=== PATIENT | female | born 1955 | race Caucasian/White ===

== ENCOUNTER 2020-03-10 10:08 | Outpatient (CLI) | payer OTHER, SELFPAY ==
--- NOTE | 2020-03-10 10:57 | ECG_ITS ---
Measurements Intervals [place] Rate: 63 P: 21 [place]: 156 QRS: 28 QRSD: 85 T: 45 QT: 400 QTc: 412 Interpretive Statements SINUS RHYTHM WITH SINUS ARRHYTHMIA BASELINE ARTIFACT- I, III, AVL, AVF NORMAL ECG Electronically Signed On 03-10-2020 11:18:44 CDT by Michael Nguyen D.O.
[2020-03-10 11:45] LABS: Basophils Absolute Auto 0.1 K/mm3 (0.0-0.1); Basophils Percent Auto 0.6 % (0.2-1.2); Eosinophils Absolute Auto 0.5 K/mm3 (0-0.3); Eosinophils Percent Auto 4.4 % (0-4.4); Hematocrit 41.9 % (37.0-47.0); Hemoglobin 13.6 g/dL (12.0-15.0); Immature Granulocyte Absolute 0.04 K/mm3 (0.00-0.031); Immature Granulocyte Percent A 0.4 % (0-0.5); Lymphocytes Absolute Auto 1.47 K/mm3 (0.9-3.2); Lymphocytes Percent Auto 14.5 % (18.3-44.2); Mean Corpuscular HGB Conc 32.5 g/dl (32-36); Mean Corpuscular Hemoglobin 28.8 pg (26-34); Mean Corpuscular Volume 88.8 fl (80-100); Mean Platelet Volume 10.7 fl (7.4-10.4); Monocytes Absolute Auto 1.6 K/mm3 (0.1-0.6); Monocytes Percent Auto 15.7 % (2.6-8.5); Neutrophils Absolute Auto 6.5 K/mm3 (1.3-6.7); Neutrophils Percent Auto 64.4 % (45.5-73.1); Platelet Count Result 326 k/mm3 (150-375); Red Blood Count 4.72 M/mm3 (4.2-5.4); Red Cell Distribution Width 12.1 % (11.5-14.5); White Blood Count 10.1 K/mm3 (4.5-10.0)
[2020-03-10 11:50] LABS: Add Urine Microscopic? YES; Appearance Urine Clear (Clear); Bilirubin Urine Negative (Negative); Blood Urine Negative (Negative); Color Urine Straw (Yellow); Glucose Urine UA Negative (Negative); Ketones Urine Negative (Negative); Leukocyte Esterase Ur Trace LEU/UL (Negative); Mucus Urine Rare /lpf; Nitrate Urine Negative (Negative); Protein Urine Negative (Negative); RBC Urine 0-2 /hpf (0-2); Specific Grav Ur 1.011 (1.001-1.035); Squamous Epithelial Cell Urine Rare /hpf (Few); Urobilinogen Urine Negative mg/dL (<2.0); WBC Urine 0-3 /hpf
[2020-03-10 11:55] LABS: Partial Thromboplastin Time 30.1 SECONDS (22.3-36.8)
[2020-03-10 11:57] LABS: Urine Cotinine NEGATIVE
[2020-03-10 12:10] LABS: Hemoglobin A1C 5.7 % (<5.7)
[2020-03-10 12:24] LABS: Albumin Level 3.9 g/dL (3.5-5.1); Anion Gap 10.5 mmol/L (7-16); Blood Urea Nitrogen 13 mg/dL (7-17); Calcium 8.8 mg/dL (8.4-10.2); Carbon Dioxide 28 mmol/L (22-30); Chloride 105 mmol/L (98-107); Estimated Glomerular Filt Rate > 60; Glucose 90 mg/dL (65-105); Potassium 4.5 mmol/L (3.4-5.0); Sodium 139 mmol/L (137-145)
== END 2020-03-10 10:09 | disposition home or self-care (01) ==
LOC: ANHSURGERY 10:11
PROVIDERS: PCP Internal Medicine; Visit Provider Orthopaedic Surgery
DX: M16.12 Unilateral primary osteoarthritis, left hip (principal)
CPT/HCPCS: 36415; 80048; 80307; 81001; 82040; 83036; 85025; 85610; 85730; 86850; 86900; 86901; 87081; 93005

== ENCOUNTER 2020-03-17 01:13 | Outpatient (CLI) | payer OTHER, SELFPAY ==
[2020-03-17 16:17] LABS: SARS-CoV-2 RNA PCR Negative
== END 2020-03-17 01:14 | disposition home or self-care (01) ==
LOC: ANHCOVIDDT 01:14
PROVIDERS: PCP Internal Medicine; Visit Provider Orthopaedic Surgery
DX: Z01.812 Encounter for preprocedural laboratory examination (principal); Z11.59 Encounter for screening for other viral diseases
CPT/HCPCS: 87635; C9803; U0003

== ENCOUNTER 2020-03-19 10:26 | Inpatient (IN) | payer OTHER, SELFPAY ==
[2020-03-10 10:19] VITALS: BMI 35.6
[2020-03-10 10:56] VITALS: BP 161/84; PULSE 65; RESP 18; TEMP 36.8; O2SAT 98
--- NOTE | 2020-03-18 10:54 | WPDANESEPPF ---
Anes - Initial Pre Proc Eval Procedure: Operation Date: 03/19/20 07:30 Proposed Procedures p Left Total Hip Arthroplasty - Eric Liu MD Date/Time: 03/18/20 10:54 Surgeon: Eric Liu MD Pre Op Diagnosis: Left Hip DJD Patient Data Age: 64 Gender: F Height: 1.68 m Weight: 100.2 kg Last Vital Signs Temp 36.8 C 03/10/20 10:56 Pulse 65 03/10/20 10:56 Resp 18 03/10/20 10:56 BP 161/84 H 03/10/20 10:56 Pulse Ox 98 03/10/20 10:56 Allergies Allergy/AdvReac Type Severity Reaction Status Date / Time codeine Allergy Unknown Nausea Verified 03/10/20 13:28 Home Medications Medication Instructions Recorded Confirmed Type levothyroxine 50 mcg capsule 50 mcg PO DAILY 02/01/20 03/10/20 History chlorhexidine gluconate 4 % 1 applic TOPICAL ONCE #237 ml 02/04/20 03/10/20 Rx topical liquid acetaminophen [Tylenol Extra 1,000 mg PO HS PRN 03/10/20 03/10/20 History Strength] lorazepam 0.5 mg PO HS PRN 03/10/20 03/10/20 History Patient hx anesthesia problems: none Family hx anesthesia problems: none PMFSH Past Medical History Medical History (Updated 03/18/20 @ 10:54 by Isael Lua DO) Anxiety Degenerative joint disease of left hip Hypothyroidism Surgical History Surgical History (Updated 03/18/20 @ 10:54 by Isael Lua DO) History of History of cholecystectomy History of sleeve gastrectomy 2016 History of tonsillectomy History of tubal ligation Social History Social History Smoking status: Never smoker Second hand tobacco smoke exposure: No Additional smoking assessment comments: DENIES ANY FORM OF TOBACCO USE Alcohol intake: current Drinks per week: 1 Alcohol use details: BEER Living arrangements: with family Spiritual care concerns: No Anes - Eval Final PreProcedure Day of Procedure 03/18/20 10:54 Patient weight: obese Heart: regular rate and rhythm Lungs: clear to auscultation and normal air movement Airway: Mallampati scale class II Neurological: alert and oriented Last oral intake: >/= 8 hours ASA classification: II Emergent: no Anesthetic plan: proceed Anesthesia type and monitoring: general ETT and standard monitoring Informed Consent: The patient's anesthetic plan and its attendant risks and benefits were discussed with the patient/family/POA. Questions were solicited and answers provided to the satisfaction of the patient/family/POA.
[2020-03-19] VITALS (16 sets, daily range): BP systolic 126–177; BP diastolic 53–89; PULSE 64–84; RESP 12–19; TEMP 35.8–36.9; O2SAT 94–100
--- NOTE | ~2020-03-19 | XR_ITS ---
EXAMINATION: XR hip LT 1V DATE: 03/19/2020 10:24 INDICATION: Postoperative evaluation following left total hip arthroplasty TECHNIQUE: Anteroposterior view of the left hip were obtained. COMPARISON: 02/01/2020 FINDINGS: Interval placement of a noncemented left total hip arthroplasty which appears well seated in near fina tomic alignment on the single provided projection. Small on the expected subcutaneous gas in the post operative bed. No fractures identified. IMPRESSION: 1. Left total hip arthroplasty, negative for postoperative purposes. Reviewed, dictated and finalized at location A.
[2020-03-19] MEDS: LACTATED RINGERS 1,000 ML 30 ML IV CONT ×2 (07:05→10:26)
[2020-03-19] MEDS: ACETAMINOPHEN 500 MG TABLET 1000 MG PO (07:07)
[2020-03-19] MEDS: TRANEXAMIC ACID 1,000MG/ISO100 1,000 MG/100 ML BAG 200 MG IVPB (07:08)
[2020-03-19] MEDS: KETOROLAC 15 MG/ML VIAL (*BKC) IV PUSH (07:08)
--- NOTE | 2020-03-19 07:15 | WPDHPUPDATE1 ---
History and Physical Update Update Date/Time: 03/19/20 07:15 History and Physical has been reviewed, including an updated exam of the patient. There are NO changes in the patient's condition. Risks, benefits, and alternatives have been discussed and questions answered. Patient agrees to proceed with procedure.
[2020-03-19] MEDS: ceFAZolin 2 GM/D5W 50 ML 2 GM/50 ML BAG IVPB ×3 (07:27→23:20)
--- NOTE | 2020-03-19 10:00 | PM.OP ---
Procedure Note - Brief Procedure Note - Brief Date of procedure: 03/19/20 Pre-op diagnosis: Left Hip DJD Post-op diagnosis: same Procedure performed: L LUC Anesthesia: GETA Surgeon: Eric Liu MD Estimated blood loss (mL): 450 Drains: No Complications: No immediate complications Condition: stable Disposition: PACU
--- NOTE | 2020-03-19 10:38 | SUR.PHASEI ---
1020 XRAY TO BESIDE FOR FILMS PER ORDERS/NO DISTRESS NOTED/DR ALSTON AT BEDSIDE
--- NOTE | 2020-03-19 11:30 | PC.NURSE ---
This patient, Zara Love, was admitted to 2 Medical Room 257-01. Patient/family oriented to hospital policies and general routines including ID bracelet, bed and alarms, visiting hours, pain management, procedures, bathroom and other care routines, personal items, smoking policy, room service/diet, and visiting hours. Valuables list has been completed. Information on how to activate the Rapid Response Team has been discussed. Patient/Family are encouraged to report perceived risks to care and to ask questions if they do not understand what they are told or what they should do.
[2020-03-19 11:57] LABS: Hematocrit 37.9 % (37.0-47.0); Hemoglobin 12.4 g/dL (12.0-15.0)
[2020-03-19] MEDS: SODIUM CHLORIDE 0.9% IV 1,000 ML 125 ML IV CONT (11:58)
--- NOTE | 2020-03-19 12:16 | OP_ITS ---
DATE OF PROCEDURE: 03/19/2020 PREOPERATIVE DIAGNOSIS: Left hip DJD. POSTOPERATIVE DIAGNOSIS: Left hip DJD. PROCEDURE PERFORMED: Left total hip arthroplasty. ANESTHESIA: General. COMPLICATIONS: None. INDICATIONS: This is a 64-year-old female with end-stage left hip DJD. She was indicated for left total hip arthroplasty. DESCRIPTION OF PROCEDURE: The patient was taken to the operating room in stable condition and placed in supine position. General anesthesia was induced and then she was placed in lateral decubitus and the left lower extremity prepped and draped sterilely from the toes to the iliac crest. Incision was made in the posterolateral aspect of the hip down to the subcutaneous tissues and then through the fascia exposing the short external rotators. The gluteus medius and minimus were retracted. The piriformis tendon was identified and the sciatic nerve was identified. The incision was then made to the piriformis tendon through the hip capsule and then down through the rest of the short external rotators. Clear fluid was coming from the hip joint. The hip was dislocated and then an osteotomy was performed approximately 1 cm proximal to the lesser trochanter. Next, the acetabulum was exposed and the sequential reaming began with a 45 reamer until a 51 reamer in approximately 35 degrees of abduction and anteversion was in line with the trans-acetabular ligament and then a trial 51 component was placed and it bottomed out well and it fit well. Once that was performed, then a Biomet G7 52 mm acetabular component was press-fit into the acetabulum. It bottomed out well. No screws were needed. Next, a liner was placed and it fit and seated well. Next, the femur was prepared first with a canal finder, then with sequential broaching until a #10 broach fit well in approximately 15 degrees of anteversion in the femoral canal. A standard neck and a -3 neck length eventually was the best fit for the patient. Once the hip was trialed, it was found that leg lengths were grossly equal. It came out to full extension. There was good stability in all planes, especially in 90 degrees of flexion and internal rotation. Trial instrumentation was removed and then a Biomet Taperloc #10 stem was press-fit into the femur in approximately 15 degrees of anteversion and then another trial was performed with a 36 mm -3 head and the hip was reduced once again. The leg lengths were grossly equal. The hip came out to full extension and then the hip was very stable in rotation and in abduction. The hip was dislocated once again and then a Biomet 36 mm -3 ceramic head was tapped into the femoral implant and then the hip was reduced once again. The Shuck test was excellent. The leg lengths were grossly equal. The hip came out to full extension without any difficulty and the rotation internal and external at 90 degrees showed the hip to be very stable. The wound was irrigated thoroughly with sterile Betadine and sterile water for 3 minutes, and then the piriformis and the rest of the short external rotators and the capsule of the hip joint were all approximated with a #1 Vicryl suture and then the fascial layer was approximated with #2 Quill. 2-0 Vicryl was used to approximate the subcutaneous tissues and then a running 3-0 Quill stitch was used to approximate the skin and the skin glue then was used on top of the incision and then Steri-Strips and then a sterile dressing was applied. The patient was placed back in the supine position. She was extubated and sent to Recovery. Venita Deanna MT: Kitty
[2020-03-19] MEDS: diazePAM 5 MG TABLET PO (15:12)
[2020-03-19] MEDS: CELECOXIB 200 MG CAPSULE PO (18:15)
[2020-03-19] MEDS: DOCUSATE SODIUM 100 MG CAPSULE PO (18:15)
[2020-03-19] MEDS: MORPHINE SULFATE 4 MG/ML INJ 3 MG IV PUSH (23:20)
[2020-03-20] VITALS (7 sets, daily range): BP systolic 111–131; BP diastolic 60–76; PULSE 69–91; RESP 12–19; TEMP 35.5–37.4; O2SAT 94–98
[2020-03-20] MEDS: LORazepam 0.5 MG TABLET PO ×2 (01:38→22:34)
[2020-03-20 05:36] LABS: Basophils Absolute Auto 0.1 K/mm3 (0.0-0.1); Basophils Percent Auto 0.4 % (0.2-1.2); Eosinophils Absolute Auto 0.1 K/mm3 (0-0.3); Eosinophils Percent Auto 0.7 % (0-4.4); Hematocrit 33.7 % (37.0-47.0); Hemoglobin 10.7 g/dL (12.0-15.0); Immature Granulocyte Absolute 0.06 K/mm3 (0.00-0.031); Immature Granulocyte Percent A 0.4 % (0-0.5); Lymphocytes Absolute Auto 0.95 K/mm3 (0.9-3.2); Lymphocytes Percent Auto 7.1 % (18.3-44.2); Mean Corpuscular HGB Conc 31.8 g/dl (32-36); Mean Corpuscular Hemoglobin 28.5 pg (26-34); Mean Corpuscular Volume 89.9 fl (80-100); Mean Platelet Volume 10.9 fl (7.4-10.4); Monocytes Absolute Auto 3.7 K/mm3 (0.1-0.6); Monocytes Percent Auto 27.4 % (2.6-8.5); Neutrophils Absolute Auto 8.6 K/mm3 (1.3-6.7); Platelet Count Result 241 k/mm3 (150-375); Red Blood Count 3.75 M/mm3 (4.2-5.4); Red Cell Distribution Width 12.8 % (11.5-14.5); White Blood Count 13.5 K/mm3 (4.5-10.0)
[2020-03-20 05:46] LABS: Anion Gap 8.1 mmol/L (7-16); Blood Urea Nitrogen 15 mg/dL (7-17); Calcium 8.3 mg/dL (8.4-10.2); Carbon Dioxide 28 mmol/L (22-30); Chloride 102 mmol/L (98-107); Estimated CRCL calculation 83 ml/min; Estimated Glomerular Filt Rate > 60; Glucose 130 mg/dL (65-105); Potassium 4.1 mmol/L (3.4-5.0); Sodium 134 mmol/L (137-145)
[2020-03-20] MEDS: LEVOTHYROXINE SODIUM 50 MCG TABLET PO (06:24)
[2020-03-20] MEDS: ceFAZolin 2 GM/D5W 50 ML 2 GM/50 ML BAG IVPB (06:24)
[2020-03-20] MEDS: ASPIRIN 325 MG ENTERIC TABLET 650 MG PO (08:54)
[2020-03-20] MEDS: oxyCODONE/ACETAMINOPHEN 5-325 MG TABLET 2 TABLET PO ×2 (08:54→22:34)
[2020-03-20] MEDS: CELECOXIB 200 MG CAPSULE PO ×2 (08:54→16:29)
[2020-03-20] MEDS: DOCUSATE SODIUM 100 MG CAPSULE PO ×2 (08:54→16:29)
--- NOTE | 2020-03-20 09:56 | PM.PNORT ---
Progress Note: A&P Assessment and Plan (1) S/P total hip arthroplasty: Qualifiers: Laterality: left Qualified Code(s): Z96.642 - Presence of left artificial hip joint Code(s): Z96.649 - Presence of unspecified artificial hip joint Status: Acute Assessment and Plan: POD #1: LEFT LUC Continue PT/OT. WBAT. Walker. Fall Risk. LUC precautions. Continue pain control. Ice lateral hip. Monitor dressing. Change prior to discharge. Continue DVT prophylaxis. SCDs. Incentive spirometry. Dispo: Home with home health pending progress with PT/OT. Subjective Subjective Date/Time Seen: 03/20/20 09:56 POD #1: Left LUC Feeling well, tired. Pain well controlled. Anticipating PT/OT this AM. Sat up in chair for breakfast. Mild nausea. Tolerating diet. Nervous about gong home. Review of Systems Constitutional: Constitutional: Denies chills, Reports fatigue, Denies fever(s), Reports lethargy and Denies night sweats Cardiovascular: Cardiovascular: Denies chest pain, Denies leg edema, Denies lightheadedness and Denies palpitations Respiratory: Respiratory: Denies cough, Denies dyspnea and Denies wheezing Gastrointestinal: Gastrointestinal: Denies constipation, Denies diarrhea, Reports nausea and Denies vomiting Comments: passing flatus Genitourinary: Genitourinary: Reports nocturia Musculoskeletal: Musculoskeletal: Reports arthralgias (left hip ) and Reports joint swelling (left hip ) Exam Const: General: comfortable and no acute distress Resp: Effort & Inspection: normal respiratory effort Cardio: Rate: regular rate Rhythm: regular rhythm GI: Inspection: non-distended Skin: General skin exam: normal color and no erythema Wounds: wounds noted (Dressing left hip c/d/i. ) Neuro: Cognition (Neuro): normal cognition Speech: normal speech Motor exam (neuro): 5/5 motor strength present throughout (decreased LLE ) Extrem: Left lower extremity: hip/thigh Details: tenderness Location: of the hip (groin ) Location: laterally, swelling Location: of the hip (mild lateral hip ) and abnormal ROM (limited due to recent surgical intervention ) Details: with range as follows (ROM/strength testing deferred due to recent surgical intervention. ), knee, lower leg Details: no tenderness and no localized swelling, ankle (+ankle dorsiflexion/plantarflexion. Negative Annette's sign. ) Details: no swelling and foot (2+ pedal pulses. ) Details: normal capillary refill and vascular exam Details: dorsalis pedis pulse present; no unusual warmth and no crepitus Psych: Mental Status: mental status grossly normal Affect: normal affect Objective Data Vital Signs Vital Signs: Vital Signs - 24 hr 03/19/20 10:08 03/19/20 10:23 03/19/20 10:38 Temperature 36.1 C L Pulse Rate 79 80 73 Respiratory Rate 18 18 16 Blood Pressure 129/53 L 127/53 L 126/70 Pulse Oximetry 100 100 100 03/19/20 10:53 03/19/20 11:08 03/19/20 11:23 Temperature Pulse Rate 65 77 71 Respiratory Rate 19 12 13 Blood Pressure 148/56 H 135/65 133/77 Pulse Oximetry 94 98 98 03/19/20 11:40 03/19/20 11:55 03/19/20 12:25 Temperature 35.9 C L 35.8 C L 36.1 C L Pulse Rate 72 64 75 Respiratory Rate 18 18 17 Blood Pressure 148/81 H 161/73 H 144/80 H Pulse Oximetry 99 98 98 03/19/20 13:25 03/19/20 14:46 03/19/20 18:00 Temperature 36.3 C L 36.3 C L Pulse Rate 79 84 Respiratory Rate 18 17 Blood Pressure 166/80 H 144/71 H Pulse Oximetry 99 100 100 03/19/20 20:00 03/19/20 21:14 03/19/20 22:00 Temperature 36.8 C 36.9 C Pulse Rate 84 78 83 Respiratory Rate 17 12 16 Blood Pressure 131/67 130/63 Pulse Oximetry 100 97 96 03/20/20 02:00 03/20/20 06:00 03/20/20 08:21 Temperature 36.7 C 36.8 C Pulse Rate 91 84 Respiratory Rate 16 12 Blood Pressure 121/67 122/69 Pulse Oximetry 98 94 96 Intake/Output Intake/Output: Intake & Output 03/17/20 03/18/20 03/19/20 03/20/20 23:59 23:59 23:59 23:59 Intake Total 1412 76
[2020-03-20] MEDS: ONDANSETRON INJ 4 MG/2 ML VIAL IV PUSH (10:33)
[2020-03-20] MEDS: diazePAM 5 MG TABLET PO ×2 (12:11→18:55)
--- NOTE | 2020-03-20 12:47 | WPDANESPN ---
Anes - Prog Note Post-Op Date/Time: 03/20/20 12:47 Cardiovascular status: normal Respiratory status: normal Airway patency: baseline Mental status: baseline Post-Op hydration status: normal Vital Signs: Last Vital Signs Temp 37.1 C 03/20/20 09:58 Pulse 69 03/20/20 09:58 Resp 15 03/20/20 09:58 BP 131/76 03/20/20 09:58 Pulse Ox 97 03/20/20 09:58 I/O: Intake & Output 03/19/20 03/20/20 03/20/20 23:59 07:59 15:59 Intake Total 1212 760 Output Total 500 Balance 712 760 Laboratory Tests 03/20/20 05:13 03/20/20 05:13 03/20/20 03/20/20 05:13 05:13 WBC 13.5 H RBC 3.75 L Hgb 10.7 L Hct 33.7 L MCV 89.9 MCH 28.5 MCHC 31.8 L RDW 12.8 Plt Count 241 MPV 10.9 H Immature Gran % (Auto) 0.4 Neut % (Auto) 64.0 Lymph % (Auto) 7.1 L [place] % (Auto) 27.4 H Eos % (Auto) 0.7 Baso % (Auto) 0.4 Lymph # (Auto) 0.95 [place] # (Auto) 3.7 H Eos # (Auto) 0.1 Baso # (Auto) 0.1 Abs Immat Gran (auto) 0.06 H Absolute Neuts (auto) 8.6 H Absolute Nucleated RBC 0.0 Nucleated RBC % 0.0 Sodium 134 L Potassium 4.1 Chloride 102 Carbon Dioxide 28 Anion Gap 8.1 BUN 15 Creatinine 0.70 Estim Creat Clear Calc 83 Estimated GFR > 60 Glucose 130 H Calcium 8.3 L Post-procedural complaints: none Patient Feedback: Patient satisfied with anesthetic care.
--- NOTE | 2020-03-20 13:21 | PM.IMCN ---
Assessment and Plan Assessment and plan (1) S/P total hip arthroplasty: Qualifiers: Laterality: left Qualified Code(s): Z96.642 - Presence of left artificial hip joint Code(s): Z96.649 - Presence of unspecified artificial hip joint Status: Acute Assessment and Plan: Zara Love is a 64 year old female with history DJD in her left hip had been managed conservatively without much relief patient was seen by her orthopedic surgeon and had a left total hip arthroplasty, POD# 1 today patient states feeling better pain is persisting but tolerable was able to participate in physical therapy, 1 episode of vomiting but denies any abdominal pain nausea or vomit patient was given Zofran and feels better. patient will be seen by her surgeon will participate in physical therapy further recommendation to follow, patient denies any history of diabetes hypertension hyperthyroid hyperlipidemia, patient denies chest pain shortness of breath palpitation fever or chills (2) Degenerative joint disease of left hip: Qualifiers: Osteoarthritis type: primary Qualified Code(s): M16.12 - Unilateral primary osteoarthritis, left hip Code(s): M16.12 - Unilateral primary osteoarthritis, left hip Status: Acute Assessment and Plan: status post left total hip arthroplasty postop day 1 HPI Data of Consult Consult date: 03/20/20 Requesting Physician: Eric Liu MD Primary Care Provider: Filiberto Salomon, Consult Narrative Narrative: Zara Love is a 64 year old female with history DJD in her left hip had been managed conservatively without much relief patient was seen by her orthopedic surgeon and had a left total hip arthroplasty, POD# 1 today patient states feeling better pain is persisting but tolerable was able to participate in physical therapy, 1 episode of vomiting but denies any abdominal pain nausea or vomit patient was given Zofran and feels better. patient will be seen by her surgeon will participate in physical therapy further recommendation to follow, patient denies any history of diabetes hypertension hyperthyroid hyperlipidemia, patient denies chest pain shortness of breath palpitation fever or chills Review of Systems Review of Systems: All systems reviewed & are unremarkable except as noted in HPI and below PMFSH Past Medical History Medical History (Updated 03/18/20 @ 10:54 by Isael Lua DO) Anxiety Degenerative joint disease of left hip Hypothyroidism Surgical History Surgical History (Updated 03/20/20 @ 10:01 by EDGAR Lazaro) History of History of cholecystectomy History of sleeve gastrectomy 2016 History of tonsillectomy History of tubal ligation S/P total hip arthroplasty Social History Social History Smoking status: Never smoker Second hand tobacco smoke exposure: No Additional smoking assessment comments: DENIES ANY FORM OF TOBACCO USE Alcohol intake: former Drinks per week: 1 Substance use: never Spiritual care concerns: No Meds Home Medications and Allergies Home Medications Medication Instructions Recorded Confirmed Type levothyroxine 50 mcg capsule 50 mcg PO DAILY 02/01/20 03/10/20 History chlorhexidine gluconate 4 % 1 applic TOPICAL ONCE #237 ml 02/04/20 03/10/20 Rx topical liquid acetaminophen [Tylenol Extra 1,000 mg PO HS PRN 03/10/20 03/10/20 History Strength] lorazepam 0.5 mg PO HS PRN 03/10/20 03/10/20 History Allergies Allergy/AdvReac Type Severity Reaction Status Date / Time codeine Allergy Unknown gastric Verified 03/20/20 13:01 distress,Nausea Vital Signs Vital Signs - 24 hr 03/19/20 13:25 03/19/20 14:46 03/19/20 18:00 Temperature 97.3 F L 97.4 F L Pulse Rate 79 84 Respiratory Rate 18 17 Blood Pressure 166/80 H 144/71 H Pulse Oximetry 99 100 100 03/19/20 20:00 03/19/20 21:14 03/19/20 2
[2020-03-21 01:32] VITALS: BP 124/60; PULSE 77; RESP 18; TEMP 35.8; O2SAT 98
[2020-03-21 05:50] VITALS: BP 109/60; PULSE 76; RESP 18; TEMP 35.3; O2SAT 94
[2020-03-21] MEDS: LEVOTHYROXINE SODIUM 50 MCG TABLET PO (06:01)
[2020-03-21] MEDS: CELECOXIB 200 MG CAPSULE PO (07:46)
[2020-03-21] MEDS: DOCUSATE SODIUM 100 MG CAPSULE PO (07:48)
[2020-03-21] MEDS: ASPIRIN 325 MG ENTERIC TABLET 650 MG PO (07:49)
[2020-03-21] MEDS: diazePAM 5 MG TABLET PO (07:52)
--- NOTE | 2020-03-21 12:21 | PM.DS ---
DS: Admitting Diagnosis Admitting Diagnosis Admitting Diagnosis: Left LUC DS: Discharge Diagnosis Discharge Diagnosis (1) S/P total hip arthroplasty: Qualifiers: Laterality: left Qualified Code(s): Z96.642 - Presence of left artificial hip joint Code(s): Z96.649 - Presence of unspecified artificial hip joint Status: Acute Assessment and Plan: POD #2: LEFT LUC Continue PT/OT. WBAT. Walker. Fall Risk. LUC precautions. Continue pain control. Ice lateral hip. Monitor dressing. Change prior to discharge. Continue DVT prophylaxis. SCDs. Incentive spirometry. Dispo: Home with home health pending progress with PT/OT. DS: Summary Hospital Course Reason for hospitalization: Left LUC Hospital Course: 64-year-old female admitted status post left total hip arthroplasty for medical management, PT/OT and pain control. Patient progressed well with formal physical therapy and was cleared from a medical standpoint for discharge. She was felt to be safe to go home with home health. She has stable hospitalization. Patient will be discharged today and will follow up in our office as an outpatient in 3 weeks. Status at Discharge Functional status at discharge: uses cane/walker Overall status at discharge: patient is progressing back to baseline Time Spent with Patient Time attestation: Total time spent providing and/or coordinating discharge services: Exam Const: General: comfortable and no acute distress Resp: Effort & Inspection: normal respiratory effort Cardio: Rate: regular rate Rhythm: regular rhythm GI: Inspection: non-distended Skin: General skin exam: normal color and no erythema Wounds: wounds noted (Dressing left hip c/d/i. ) Neuro: Cognition (Neuro): normal cognition Speech: normal speech Motor exam (neuro): 5/5 motor strength present throughout (decreased LLE ) Extrem: Left lower extremity: hip/thigh, knee, lower leg, ankle (+ankle dorsiflexion/plantarflexion. Negative Annette's sign. ) and foot (2+ pedal pulses. ) Psych: Mental Status: mental status grossly normal Affect: normal affect Discharge Plan Discharge Attending physician on discharge: Eric Liu Consulting providers: Naveed Treadwell Discharging Clinician: Carissa Reddy Anticipated Discharge Date/Time: 03/21/20 15:00 Patient Disposition: Home Health Service Activity: may shower, no driving and follow weight bearing status Diet: as tolerated Wound Care Instructions: follow printed instructions and other - see discharge instructions Discharge Instructions: Post Op Total Hip Replacement Instructions Dr. Eric Liu ?Your dressing will be changed prior to your discharge. You will be sent home with one additional dressing to be changed in 5 days by the home health RN. If your incision was closed with johann, they will be removed on the 14th day after surgery and steri-strips will be placed. If your incision was closed with dermabond, allow the dermabond to fall off naturally and do not disrupt incision healing. ?You may shower with your dressing but do not submerge in a bath tub. ?Do not drive or operate machinery until you are released by Dr. Liu. ?Do not walk without a walker for any reason until you are released by Dr. Liu. ?Continue to apply ice to the hip intermittently for additional pain relief. Protect your skin with a towel or pillow case. ?Continue to follow strict total hip replacement precautions. ?Your follow up appointment is indicated in your discharge instructions. ?Your medications have been sent to your pharmacy. ?Please contact our office with any questions/concerns regarding your knee at [phone]. Patient Instructions: Antibiotic Form, Aspirin (By mouth), Pain Management (DC), Precautions after Total Joint Replacement Surgery (DC), Joint Replacement Surgery (DC), Total Hip Replacement (DC) Stand Alone Forms: General Discharge Information [facility]
--- NOTE | 2020-03-21 12:22 | PM.PNORT ---
Progress Note: A&P Assessment and Plan (1) S/P total hip arthroplasty: Qualifiers: Laterality: left Qualified Code(s): Z96.642 - Presence of left artificial hip joint Code(s): Z96.649 - Presence of unspecified artificial hip joint Status: Acute Assessment and Plan: POD #2: LEFT LUC Continue PT/OT. WBAT. Walker. Fall Risk. LUC precautions. Continue pain control. Ice lateral hip. Monitor dressing. Change prior to discharge. Continue DVT prophylaxis. SCDs. Incentive spirometry. Dispo: Home with home health pending progress with PT/OT. Subjective Subjective Date/Time Seen: 03/21/20 12:22 POD #2: Left LUC No new complaints. Feeling well. Wants to go home. Review of Systems Constitutional: Constitutional: Denies chills, Reports fatigue, Denies fever(s) and Denies night sweats Cardiovascular: Cardiovascular: Denies chest pain, Denies leg edema, Denies lightheadedness and Denies palpitations Respiratory: Respiratory: Denies cough, Denies dyspnea and Denies wheezing Gastrointestinal: Gastrointestinal: Denies constipation, Denies diarrhea, Reports nausea and Denies vomiting Comments: passing flatus Genitourinary: Genitourinary: Reports nocturia Musculoskeletal: Musculoskeletal: Reports arthralgias (left hip ) and Reports joint swelling (left hip ) Exam Const: General: comfortable and no acute distress Resp: Effort & Inspection: normal respiratory effort Cardio: Rate: regular rate Rhythm: regular rhythm GI: Inspection: non-distended Skin: General skin exam: normal color and no erythema Wounds: wounds noted (Dressing left hip c/d/i. ) Neuro: Cognition (Neuro): normal cognition Speech: normal speech Motor exam (neuro): 5/5 motor strength present throughout (decreased LLE ) Extrem: Left lower extremity: hip/thigh, knee, lower leg, ankle (+ankle dorsiflexion/plantarflexion. Negative Annette's sign. ) and foot (2+ pedal pulses. ) Psych: Mental Status: mental status grossly normal Affect: normal affect Objective Data Vital Signs Vital Signs: Vital Signs - 24 hr 03/20/20 14:00 03/20/20 18:00 03/20/20 21:49 Temperature 36.8 C 37.4 C 35.5 C L Pulse Rate 77 81 80 Respiratory Rate 15 19 18 Blood Pressure 111/64 115/68 113/60 Pulse Oximetry 97 96 96 03/21/20 01:32 03/21/20 05:50 Temperature 35.8 C L 35.3 C L Pulse Rate 77 76 Respiratory Rate 18 18 Blood Pressure 124/60 109/60 Pulse Oximetry 98 94 Intake/Output Intake/Output: Intake & Output 03/18/20 03/19/20 03/20/20 03/21/20 23:59 23:59 23:59 23:59 Intake Total 1412 1000 240 Output Total 500 Balance 912 1000 240 Meds/Results Medications: Active Medications Generic Name Dose Route Start Last Admin Trade Name Freq PRN Reason Stop Dose Admin Acetaminophen 650 mg 03/19/20 11:29 Tylenol Tablet PO Q6H PRN Mild Pain (1-3) or Fever Acetaminophen 1,000 mg 03/19/20 11:29 Tylenol Tablet PO HS PRN Pain Hydrocodone Bitart/Acetaminophen 1 tab 03/19/20 11:29 03/21/20 07:52 [place] 7.5-325 Mg PO 1 tab Q3H PRN Administration Pain Rated 4-6 Aspirin 650 mg 03/20/20 09:00 03/21/20 07:49 Aspirin Ec PO 650 mg DAILY KATIANA Administration Celecoxib 200 mg 03/19/20 17:00 03/21/20 07:46 Celebrex PO 200 mg BIDWM KATIANA Administration Diazepam 5 mg 03/19/20 11:29 03/21/20 07:52 Valium Po PO 5 mg Q6H PRN Administration Anxiety/Muscle Spasm Docusate Sodium 100 mg 03/19/20 17:00 03/21/20 07:48 Colace Capsule PO 100 mg BID KATIANA Administration Hydroxyzine HCl 50 mg 03/19/20 11:29 Atarax Tablet PO Q4H PRN Itching Levothyroxine Sodium 50 mcg 03/20/20 06:30 03/21/20 06:01 Synthroid PO 50 mcg DAILY@0630 KATIANA Administration Lorazepam 0.5 mg 03/19/20 11:29 03/20/20 22:34 Ativan Tablet PO 0.5 mg HS PRN Administration Anxiety Magnesium Hydroxide 30 ml 03/19/20 11:29 Milk [employer]
--- NOTE | 2020-03-21 13:57 | PM.IMPN ---
Progress Note: A&P Assessment and Plan (1) S/P total hip arthroplasty: Qualifiers: Laterality: left Qualified Code(s): Z96.642 - Presence of left artificial hip joint Code(s): Z96.649 - Presence of unspecified artificial hip joint Status: Acute Assessment and Plan: 03/21/20 13:57 Zara Love is a 64 year old female with history DJD in her left hip had been managed conservatively without much relief patient was seen by her orthopedic surgeon and had a left total hip arthroplasty, POD# 1 today patient states feeling better pain is persisting but tolerable was able to participate in physical therapy, 1 episode of vomiting but denies any abdominal pain nausea or vomit patient was given Zofran and feels better. patient will be seen by her surgeon will participate in physical therapy further recommendation to follow, patient denies any history of diabetes hypertension hyperthyroid hyperlipidemia, patient denies chest pain shortness of breath palpitation fever or chills, today POD #2 patient was able to participate in physical therapy and feels much better able to ambulate, patient is seen by orthopedic surgeon will be discharged home today. (2) Degenerative joint disease of left hip: Qualifiers: Osteoarthritis type: primary Qualified Code(s): M16.12 - Unilateral primary osteoarthritis, left hip Code(s): M16.12 - Unilateral primary osteoarthritis, left hip Status: Acute Assessment and Plan: status post left total hip arthroplasty postop day 1 Subjective Date/time seen: 03/21/20 13:57 Zara Love is a 64 year old female with history DJD in her left hip had been managed conservatively without much relief patient was seen by her orthopedic surgeon and had a left total hip arthroplasty, POD# 1 today patient states feeling better pain is persisting but tolerable was able to participate in physical therapy, 1 episode of vomiting but denies any abdominal pain nausea or vomit patient was given Zofran and feels better. patient will be seen by her surgeon will participate in physical therapy further recommendation to follow, patient denies any history of diabetes hypertension hyperthyroid hyperlipidemia, patient denies chest pain shortness of breath palpitation fever or chills, today POD #2 patient was able to participate in physical therapy and feels much better able to ambulate, patient is seen by orthopedic surgeon will be discharged home today. Review of Systems Review of Systems: All systems reviewed & are unremarkable except as noted in HPI and below Exam Const: General: comfortable and no acute distress HENMT: General nose exam: Normal nares present Eyes: General: appearance normal, both eyes and all related structures Sclera: sclerae normal Neck: Neck: supple Resp: Effort & Inspection: normal respiratory effort Auscultation: clear to auscultation bilaterally Cardio: Rate: regular rate Rhythm: regular rhythm GI: Auscultation: normal bowel sounds Skin: General skin exam: normal color Neuro: Speech: normal speech Sensory Exam: normal sensation Extrem: General: normal to inspection Other: bilateral lower extremity symmetrical there is no internal or external rotation Psych: Mental Status: mental status grossly normal Affect: normal affect Objective Data Vital Signs Vital Signs: Vital Signs - 24 hr 03/20/20 14:00 03/20/20 18:00 03/20/20 21:49 Temperature 98.2 F 99.4 F 96 F L Pulse Rate 77 81 80 Respiratory Rate 15 19 18 Blood Pressure 111/64 115/68 113/60 Pulse Oximetry 97 96 96 03/21/20 01:32 03/21/20 05:50 Temperature 96.5 F L 95.5 F L Pulse Rate 77 76 Respiratory Rate 18 18 Blood Pressure 124/60 109/60 Pulse Oximetry 98 94 Intake/Output Intake/Output: Intake & Output 03/18/20 03/19/20 03/20/20 03/21/20 23:59 23:59 23:59 23:59 Intake Total 1412 1000 340 Output Total 500 Balance 912 1000 340 Meds/Results Medicatio
== END 2020-03-21 14:31 | disposition home health service (06) | DRG 470 ==
LOC: ANH2MED 12:07
PROVIDERS: Admitting Provider Orthopaedic Surgery; PCP Internal Medicine; Visit Provider Orthopaedic Surgery
PROC: 0SRB04A Replacement of Left Hip Joint with Ceramic on Polyethylene Synthetic Substitute, Uncemented, Open Approach (ICD-10-PCS; CPT 27130; principal; 2020-03-19 07:30)
DX: M16.12 Unilateral primary osteoarthritis, left hip (principal); E66.9 Obesity, unspecified; Z68.35 Body mass index [BMI] 35.0-35.9, adult; Z90.49 Acquired absence of other specified parts of digestive tract; E03.9 Hypothyroidism, unspecified; F41.9 Anxiety disorder, unspecified
CPT/HCPCS: 36415; 73501; 80048; 85014; 85018; 85025; 97110; 97116; 97161; 97165; 97530; 97535; A9270; C1776; J0171; J0330; J0690; J1100; J1885; J2250; J2270; J2405; J2704; J2710; J2795; J3010; J7030; J7120

== ENCOUNTER 2020-05-29 10:30 | Outpatient (RCR) | payer OTHER, SELFPAY ==
--- NOTE | 2020-04-18 11:59 | PTOPEVAL ---
Thank you for referring Zara Love to [facility].? The patient is scheduled to be seen for therapy? 2 x/week for 6 weeks. Please review, sign, date and return this plan of care LINDSEY. I agree with and certify that the following plan of care is medically necessary. Referring Physician Date Admitting Provider: Attending Provider: Eric Liu MD Referring Provider: *PT Outpatient Evaluation Start: 04/18/20 10:44 Freq: Status: Active Protocol: Document 04/18/20 10:44 TLM (Rec: 04/18/20 11:26 TLM [id number]) Therapy Assessment Status Assessment Status Assessment Status Evaluation Outpatient Past Medical History Past Medical History Source of Past Medical History Recalled from Previous Visit, Confirmed with Patient/Family Neurological History Hx Neurological Disorders No Significant History Cardiovascular History Hx Other Cardiac Disorders Yes: WATER AEROBICS DAILY Respiratory History Hx Pneumonia Yes Gastrointestinal History Hx Appendectomy Yes Hx Cholecystectomy Yes Hx Gastric Bypass Surgery Yes: 2015 GASTRIC SLEEVE Genitourinary History Hx Genitourinary Disorders No Significant History Musculoskeletal History Hx Arthritis Yes: KNEES/HIPS Hx Fractures Yes: RIGHT FOOT AT AGE 19 Hx Joint Replacement Yes: 2016 LTKA, 2019 LTHA Hx Other Musculoskeletal Disorders Yes: DJD LT HIP Hematological History Hx Blood Transfusions Yes: POST 1976 Endocrine History Hx Hypothyroidism Yes HEENT History Hx Tonsillectomy Yes: CHILDHOOD Hx Other HEENT Disorders Yes: FULL SET DENTURES Integumentary History Hx Skin Disorders No Significant History Reproductive History Hx Section Yes: X3 Hx Hysterectomy Yes Hx Tubal Ligation Yes Psychosocial History Hx Anxiety Yes Pain History History of Any Previous or Ongoing No Significant History Instance of Pain Anesthesia History Hx Anesthesia Reactions No Significant History Other History Hx Implanted Device Yes: LEFT KNEE/LEFT HIP Evaluation Information Problem Diagnosis L LUC Onset 03/19/20 Subjective Information Underwent L LUC on 03/19/20 with Query Text:As Reported By Patient/ Dr. Liu and had a follow Family up on tuesday where they stated she needed to start ambulating without the walker and they would see her again in 2 months. Was receiving home health 2-3x wk for 2
--- NOTE | 2020-04-29 12:46 | PCPTNOTE ---
Patient called & cancelled scheduled appointment this date due to stating she can't make it.
--- NOTE | 2020-05-27 11:21 | PCPTNOTE ---
Patient called & cancelled scheduled appointment this date due to illness.
--- NOTE | 2020-05-29 11:41 | PTOPEVAL ---
Thank you for referring Zara Love to [facility].? Pt has received 9 therapy visits to address her impairments related to her THR. She has improved with her strength, joint range, pain and functional mobility. She is indep with her HEP and cardio conditioning program. She has reached maximal potential with skilled therapy services at this time. DC skilled PT services with 90% of goals met. Please review, sign, date and return this plan of care LINDSEY. I agree with and certify that the following plan of care is medically necessary. Referring Physician Date Attending Provider: Eric Liu MD *PT Outpatient Evaluation Start: 04/18/20 10:44 Freq: Status: Active Protocol: Document 05/29/20 10:42 CAP (Rec: 05/29/20 11:26 CAP [id number]) Therapy Assessment Status Assessment Status Assessment Status Discharge Evaluation Information Problem Diagnosis L LUC Onset 03/19/20 Additional Evaluation Detail Underwent L LUC on 03/19/[address] Liu and had a follow up on tuesday where they stated she needed to start ambulating without the walker and they would see her again in 2 months. 06/26/20 is the next MD appt. Subjective Information Reports no pain only stiffness Query Text:As Reported By Patient/ . Denies any tenderness of Family healed incision. Denies any problems with ADL's, baby doctor or mobility. She is able to preform steps slowly. She is riding her bike up to 3 miles without problem. She is not feeling as off balance with walking without a walker, She is not having numbness at L lateral calf into ankle. Pain Assessment Timing of Pain Assessment Timing of Pain Assessment Re-assessment Self Report Self Report Pain Level 0 Pain Score Pain Score 0: Self Report Lower Extremity Range of Motion General Lower Extremity Range of Motion Gross Lower Extremity Range of Motion L hip flexion: 110 degrees. Comments left hip abd 20 dg R hip flexion: 115 degrees Lower Extremity Muscle Strength Testing Hip Strength Right Hip Flexion Strength 4+ Good + Hip Extension Strength 4 Good Hip Abduction Strength 4- Good - Left Hip Flexion Strength 4+ Good + Hip Extension Strength 4- Good - Hip Abduction Strength 3
== END 2020-05-30 10:52 | disposition home or self-care (01) ==
LOC: ANHPT 10:30
PROVIDERS: PCP Internal Medicine; Visit Provider Orthopaedic Surgery
DX: Z47.1 Aftercare following joint replacement surgery (principal); Z96.642 Presence of left artificial hip joint
CPT/HCPCS: 97110; 97112; 97140; 97161; 97530

== ENCOUNTER 2021-06-10 08:04 | Outpatient (CLI) | payer OTHER, SELFPAY ==
--- NOTE | 2021-06-10 09:03 | ECG_ITS ---
Measurements Intervals [place] Rate: 57 P: 43 MA: 170 QRS: 39 QRSD: 104 T: 47 QT: 414 QTc: 405 Interpretive Statements SINUS BRADYCARDIA VENTRICULAR PREMATURE COMPLEX BASELINE ARTIFACT- I, II, III, AVR, AVL, AVF BORDERLINE ECG Electronically Signed On 06-10-2021 10:01:00 CDT by Michael Nguyen D.O.
[2021-06-10 10:01] LABS: Basophils Absolute Auto 0.1 K/mm3 (0.0-0.1); Basophils Percent Auto 1.2 % (0.2-1.2); Eosinophils Absolute Auto 0.3 K/mm3 (0-0.3); Eosinophils Percent Auto 3.3 % (0-4.4); Hematocrit 44.5 % (37.0-47.0); Hemoglobin 14.3 g/dL (12.0-15.0); Immature Granulocyte Absolute 0.02 K/mm3 (0.00-0.031); Immature Granulocyte Percent A 0.3 % (0-0.5); Lymphocytes Absolute Auto 1.36 K/mm3 (0.9-3.2); Lymphocytes Percent Auto 18.1 % (18.3-44.2); Mean Corpuscular HGB Conc 32.1 g/dl (32-36); Mean Corpuscular Hemoglobin 29.1 pg (26-34); Mean Corpuscular Volume 90.4 fl (80-100); Mean Platelet Volume 11.6 fl (7.4-10.4); Monocytes Absolute Auto 1.3 K/mm3 (0.1-0.6); Monocytes Percent Auto 17.1 % (2.6-8.5); Neutrophils Absolute Auto 4.5 K/mm3 (1.3-6.7); Platelet Count Result 203 k/mm3 (150-375); Red Blood Count 4.92 M/mm3 (4.2-5.4); Red Cell Distribution Width 12.4 % (11.5-14.5); White Blood Count 7.5 K/mm3 (4.5-10.0)
[2021-06-10 10:03] LABS: Add Urine Microscopic? NO; Appearance Urine Clear (Clear); Bilirubin Urine Negative (Negative); Blood Urine Negative (Negative); Color Urine Yellow (Yellow); Glucose Urine UA Negative (Negative); Ketones Urine Negative (Negative); Leukocyte Esterase Ur Negative LEU/UL (Negative); Nitrate Urine Negative (Negative); Protein Urine Negative (Negative); Specific Grav Ur 1.014 (1.001-1.035); Urobilinogen Urine Negative mg/dL (<2.0)
[2021-06-10 10:05] LABS: Albumin Level 4.1 g/dL (3.5-5.1); Anion Gap 7 mmol/L (8-16); Blood Urea Nitrogen 15 mg/dL (7-17); Calcium 9.1 mg/dL (8.4-10.2); Carbon Dioxide 29 mmol/L (22-30); Chloride 104 mmol/L (98-107); Estimated Glomerular Filt Rate > 60; Glucose 105 mg/dL (65-110); Potassium 4.3 mmol/L (3.4-5.0); Sodium 140 mmol/L (137-145); Urine Cotinine NEGATIVE
[2021-06-10 10:06] LABS: Hemoglobin A1C 5.7 % (<5.7)
[2021-06-10 10:10] LABS: INR 0.9; Prothrombin Time 12.4 Seconds (11.1-14.7)
[2021-06-10 10:11] LABS: Partial Thromboplastin Time 31.7 SECONDS (22.3-36.8)
== END 2021-06-10 08:05 | disposition home or self-care (01) ==
LOC: ANHSURGERY 08:09
PROVIDERS: PCP Internal Medicine; Visit Provider Orthopaedic Surgery
DX: Z01.818 Encounter for other preprocedural examination (principal); M17.11 Unilateral primary osteoarthritis, right knee; R00.1 Bradycardia, unspecified
CPT/HCPCS: 80048; 80307; 81003; 82040; 83036; 85025; 85610; 85730; 86850; 86900; 86901; 87081; 93005

== ENCOUNTER 2021-06-24 15:00 | Observation (INO) | payer OTHER, SELFPAY ==
[2021-06-10 08:25] VITALS: BP 155/76; PULSE 58; RESP 16; TEMP 37.2; O2SAT 98; BMI 34.9
--- NOTE | 2021-06-22 13:51 | P.PNAN_ITS ---
Anes - Initial Pre Proc Eval Procedure: Operation Date: 06/23/21 12:00 Proposed Procedures p Right Total Knee Arthroplasty - Eric Liu MD Date/Time: 06/22/21 13:51 Surgeon: Eirc Liu MD Pre Op Diagnosis: Rt Knee DJD Patient Data Age: 65 Gender: F Height: 1.68 m Weight: 98.2 kg Last Vital Signs Temp 37.2 C 06/10/21 08:25 Pulse 58 L 06/10/21 08:25 Resp 16 06/10/21 08:25 BP 155/76 H 06/10/21 08:25 Pulse Ox 98 06/10/21 08:25 Allergies Allergy/AdvReac Type Severity Reaction Status Date / Time codeine AdvReac Unknown Nausea,gastric Verified 06/23/21 10:21 distress Home Medications Medication Instructions Recorded Confirmed Type levothyroxine 88 mcg PO QAM 06/10/21 06/23/21 History lorazepam 0.5 mg PO DAILY PRN 06/10/21 06/23/21 History losartan 50 mg PO QAM 06/10/21 06/23/21 History naproxen sodium [Aleve] 220 mg PO BID PRN 06/10/21 06/23/21 History Patient hx anesthesia problems: none Family hx anesthesia problems: none Results Review: All pre-operative results and documents have been reviewed as part of the pre-operative evaluation. [facility] Past Medical History Medical History (Updated 06/22/21 @ 13:52 by Miguel Ángel Bass MD) Anxiety Arthritis Degenerative joint disease of left hip HTN (hypertension) Hypothyroidism Obesity Right knee DJD Surgical History Surgical History History of History of cholecystectomy History of sleeve gastrectomy 2016 History of tonsillectomy History of tubal ligation S/P total hip arthroplasty Family History Family History Other Diabetes mellitus Family history of coronary artery disease Family history of malignant neoplasm Hypertension Social History Social History Second hand tobacco smoke exposure: No Additional smoking assessment comments: DENIES ANY FORM OF TOBACCO USE Alcohol intake: former Drinks per week: 1 Alcohol use details: BEER Substance use: never Living arrangements: with family Additional living arrangements comments: HUSB Spiritual care concerns: No Anes - Eval Final PreProcedure Day of Procedure 06/22/21 13:51 Patient weight: obese Heart: regular rate and rhythm Lungs: clear to auscultation and normal air movement Airway: Mallampati scale class II Neurological: alert and oriented Last oral intake: >/= 8 hours ASA classification: III Emergent: no Anesthetic plan: proceed Anesthesia type and monitoring: general LMA Results Review: All pre-operative results and documents have been reviewed as part of the pre-operative evaluation. Informed Consent: The patient's anesthetic plan and its attendant risks and benefits were discussed with the patient/family/POA. Questions were solicited and answers provided to the satisfaction of the patient/family/POA.
--- NOTE | 2021-06-22 13:53 | WPDANESPNB ---
Anes - Peripheral Nerve Block Date/Time: 06/22/21 13:53 I have discussed with the patient/family/POA the placement of a peripheral nerve block for post-operative pain management, including associated risks, benefits, complications, and side effects. Alternative methods of post-operative analgesia were detailed. Questions were solicited and answers provided to the satisfaction of the patient/family/POA. Time-Out: A pre-procedural Time-Out was completed immediately before starting the procedure and confirmed: Patient Identification, Site, Procedure, Patient Position and the Availability of Requisite Equipment. Clinical Indications: Acute post-operative pain management requested by the operative surgeon. Nerve Block Insertion Note Anes-nerve block: adductor canal right Patient position: supine Skin prep: chlorhexidine Needle: 22 gauge, stimulating, insulated echogenic needle. Needle length: 80 mm Technique: ultrasound Technique comment: in plane Injectate: bupivacaine 0.25% with epi 5 mcg/ml (30cc) Observations: tolerated well Complications: none Procedure start time:: 1150 Procedure end time:: 1155
[2021-06-23] VITALS (14 sets, daily range): BP systolic 137–177; BP diastolic 65–92; PULSE 57–84; RESP 10–20; TEMP 36.3–37; O2SAT 97–100
--- NOTE | 2021-06-23 08:26 | WPDHPUPDATE1 ---
History and Physical Update Update Date/Time: 06/23/21 08:26 History and Physical has been reviewed, including an updated exam of the patient. There are NO changes in the patient's condition. Risks, benefits, and alternatives have been discussed and questions answered. Patient agrees to proceed with procedure.
[2021-06-23] MEDS: ACETAMINOPHEN 500 MG TABLET 1000 MG PO (10:29)
[2021-06-23] MEDS: LACTATED RINGERS 1,000 ML 30 ML IV CONT ×3 (10:37→15:15)
[2021-06-23] MEDS: TRANEXAMIC ACID 1,000MG/ISO100 1,000 MG/100 ML BAG 200 MG IVPB (11:25)
[2021-06-23] MEDS: ceFAZolin 2 GM/D5W 50 ML 2 GM/50 ML BAG IVPB ×2 (12:14→20:07)
[2021-06-23] MEDS: GENTAMICIN BONE CEMENT REFOBACIN 1 EACH TOPICAL (13:04)
[2021-06-23] MEDS: TRANEXAMIC ACID 1,000 MG/10 ML AMPUL 1000 MG IV PUSH (13:37)
--- NOTE | 2021-06-23 14:30 | W.PM.PROC2 ---
Procedure Note - Detailed Date of Procedure 06/23/21 Pre-op Diagnosis Rt Knee DJD Post-op Diagnosis same Procedure Performed R TKA Surgeon Eric Liu MD Anesthesia general Description of Procedure THE RIGHT KNEE WAS PREPPED AND DRAPED IN THE STERILE FASHION. THERE WAS A 10 DEGREE FLEXION CONTRACTURE. A MIDLINE SKIN INCISION WAS MADE. A MEDIAL PARAPATELLAR ARTHROTOMY WAS MADE. THE PATELLA WAS EVERTED. THERE WAS TRICOMPARTMENT DJD. THERE WAS MINIMAL PATELLA DJD. AN INTRAMEDULLARY JUDE WAS PLACED IN THE FEMUR. A DISTAL FEMORAL CUT WAS MADE IN 5 DEGREES OF VALGUS REMOVING APPROXIMATELY 9 MM OF BONE FROM THE DISTAL FEMUR. THE FEMUR WAS SIZED TO 65. A 65 FEMORAL CUTTING BLOCK WAS PLACED IN 3 DEGREES OF EXTERNAL ROTATION AND IN ALIGNMENT WITH STEFAN'S LINE AND THE TRANSEPICONDYLAR AXIS. ANTERIOR POSTERIOR AND CHAMFER CUTS WERE MADE. THE CUTS WERE EXCELLENT. NEXT AN INTRAMEDULLARY CUTTING GUIDE WAS PLACED IN THE TIBIA. A TRANS TIBIAL CUT WAS MADE ALONG THE LONG AXIS OF THE TIBIA. APPROXIMATELY 10 MM OF BONE WAS REMOVED FROM THE HIGH SIDE OF THE TIBIA. THE TIBIA WAS THEN PLANED TO A SMOOTH SURFACE. POSTERIOR FEMORAL OSTEOPHYTES WERE REMOVED FROM THE FEMORAL CONDYLES. A 75 TIBIAL TRIAL WAS PLACED IN ALIGNMENT WITH THE 1/3 MEDIAL ASPECT OF THE TIBIAL TUBERCLE. THEN A 65 FEMORAL TRIAL COMPONENT WAS PLACED. BOTH HAD EXCELLENT FITS. EVENTUALLY A 10 MM POLYETHYLENE TRIAL COMPONENT WAS PLACED. THE KNEE WAS TAKEN THROUGH A RANGE OF MOTION. THE KNEE CAME OUT TO FULL EXTENSION. THERE WAS NO ABNORMAL TILT TO THE PATELLA. THERE WAS GOOD A/P AND VARUS/VALGUS STABILITY. THERE WAS NO EXCESSIVE ROLL BACK WITH FLEXION. THE TRIAL COMPONENTS WERE REMOVED. THEN A 65 FEMORAL COMPONENT AND 75 TIBIAL COMPONENT WITH A 10 POLYETHYLENE COMPONENT WERE CEMENTED INTO PLACE. ONCE THE CEMENT WAS HARD THE KNEE WAS TAKEN THROUGH A ROM AGAIN AND FOUND TO BE STABLE WITH NO PATELLA TILT NO EXCESSIVE ROLL BACK WITH FLEXION AND GOOD STABILITY WITH COMPLETE AND FULL EXTENSION. THE KNEE WAS IRRIGATED WITH STERILE BETADINE AND WATER FOR ABOUT 3 MINUTES. THE BLEEDERS WERE CAUTERIZED. THE ARTHROTOMY WAS REPAIRED WITH NUMBER 1 VICRYL. THE SUB CUTANEOUS LAYER WITH 2-0 VICRYL AND THE SKIN WITH MARIKA. THE WOUND WAS WASHED AND A STERILE DRESSING WAS APPLIED. PATIENT WAS EXTUBATED. Estimated Blood Loss -150.0 Pathology none sent Complications No immediate complications Condition stable Disposition PACU
[2021-06-23] MEDS: ONDANSETRON INJ 4 MG/2 ML VIAL IV PUSH ×2 (14:50→18:49)
[2021-06-23] MEDS: fentaNYL CITRATE INJ (*CRX) 100 MCG/2 ML VIAL 25 MCG IV PUSH ×8 (15:08→15:42)
[2021-06-23] MEDS: DEXAMETHASONE SOD PHOS INJ 4 MG/ML VIAL IV PUSH (15:26)
--- NOTE | 2021-06-23 16:00 | ADMGEN ---
This patient, Zara Love, was admitted to Medical Room 248-01. Patient/family oriented to hospital policies and general routines including ID bracelet, bed and alarms, visiting hours, pain management, procedures, bathroom and other care routines, personal items, smoking policy, room service/diet, and visiting hours. Information on how to activate the Rapid Response Team has been discussed. Patient/Family are encouraged to report perceived risks to care and to ask questions if they do not understand what they are told or what they should do.
[2021-06-23] MEDS: SODIUM CHLORIDE 0.9% IV 1,000 ML 125 ML IV CONT (16:40)
[2021-06-23] MEDS: DOCUSATE SODIUM 100 MG CAPSULE PO (17:00)
[2021-06-23] MEDS: oxyCODONE HCL (*CRX) 2.5 MG TAB IR 7.5 MG PO ×2 (17:06→21:47)
[2021-06-23] MEDS: FAMOTIDINE 20 MG TABLET PO (20:05)
--- NOTE | ~2021-06-24 | XR_ITS ---
EXAMINATION: XR knee RT 2V DATE: 06/23/2021 14:49 PROPERTY UNDERWRITER INDICATION: Right total knee arthroplasty TECHNIQUE: 2 views right knee FINDINGS: There is a right total knee arthroplasty in expected position. Subcutaneous gas with fluid and air in the joint are consistent with recent surgery. No evidence of periprosthetic fracture. IMPRESSION: 1. Recent right total knee arthroplasty. Reviewed, dictated and finalized at location A. ERTY UNDERWRITER
[2021-06-24 01:33] VITALS: BP 157/79; PULSE 70; RESP 18; TEMP 36.5; O2SAT 99
[2021-06-24] MEDS: oxyCODONE HCL (*CRX) 2.5 MG TAB IR 7.5 MG PO ×5 (03:18→22:46)
[2021-06-24] MEDS: ceFAZolin 2 GM/D5W 50 ML 2 GM/50 ML BAG IVPB ×2 (04:08→11:34)
[2021-06-24 05:26] VITALS: BP 145/75; PULSE 72; RESP 18; TEMP 36.8; O2SAT 95
[2021-06-24 05:57] LABS: Basophils Absolute Auto 0.1 K/mm3 (0.0-0.1); Basophils Percent Auto 0.3 % (0.2-1.2); Hematocrit 39.5 % (37.0-47.0); Hemoglobin 12.9 g/dL (12.0-15.0); Immature Granulocyte Absolute 0.09 K/mm3 (0.00-0.031); Immature Granulocyte Percent A 0.5 % (0-0.5); Lymphocytes Absolute Auto 1.04 K/mm3 (0.9-3.2); Lymphocytes Percent Auto 5.9 % (18.3-44.2); Mean Corpuscular HGB Conc 32.7 g/dl (32-36); Mean Corpuscular Hemoglobin 29.5 pg (26-34); Mean Corpuscular Volume 90.4 fl (80-100); Mean Platelet Volume 11.2 fl (7.4-10.4); Monocytes Absolute Auto 3.8 K/mm3 (0.1-0.6); Monocytes Percent Auto 21.3 % (2.6-8.5); Neutrophils Absolute Auto 12.8 K/mm3 (1.3-6.7); Platelet Count Result 265 k/mm3 (150-375); Red Blood Count 4.37 M/mm3 (4.2-5.4); Red Cell Distribution Width 12.4 % (11.5-14.5); White Blood Count 17.7 K/mm3 (4.5-10.0)
[2021-06-24 06:03] LABS: Anion Gap 10 mmol/L (8-16); Blood Urea Nitrogen 12 mg/dL (7-17); Calcium 8.8 mg/dL (8.4-10.2); Carbon Dioxide 27 mmol/L (22-30); Chloride 103 mmol/L (98-107); Estimated CRCL calculation 81 ml/min; Estimated Glomerular Filt Rate > 60; Glucose 125 mg/dL (65-110); Potassium 4.1 mmol/L (3.4-5.0); Sodium 140 mmol/L (137-145)
[2021-06-24] MEDS: LEVOTHYROXINE SODIUM 88 MCG TABLET PO (06:46)
--- NOTE | 2021-06-24 07:27 | P.PNAN_ITS ---
Anes - Prog Note Post-Op Date/Time: 06/24/21 07:27 Cardiovascular status: normal Respiratory status: normal Airway patency: baseline Mental status: baseline Post-Op hydration status: normal Vital Signs: Last Vital Signs Temp 36.8 C 06/24/21 05:26 Pulse 72 06/24/21 05:26 Resp 18 06/24/21 05:26 BP 145/75 H 06/24/21 05:26 Pulse Ox 95 06/24/21 05:26 Pain Score (VAS): 4 I/O: Intake & Output 06/23/21 06/23/21 06/24/21 15:59 23:59 07:59 Intake Total 430 420 5308 Output Total 500 900 Balance 750 -250 300 Laboratory Tests 06/24/21 05:14 06/24/21 05:14 06/24/21 06/24/21 05:14 05:14 WBC 17.7 H RBC 4.37 Hgb 12.9 Hct 39.5 MCV 90.4 MCH 29.5 MCHC 32.7 RDW 12.4 Plt Count 265 MPV 11.2 H Immature Gran % (Auto) 0.5 Neut % (Auto) 72.0 Lymph % (Auto) 5.9 L [place] % (Auto) 21.3 H Eos % (Auto) 0.0 Baso % (Auto) 0.3 Lymph # (Auto) 1.04 [place] # (Auto) 3.8 H Eos # (Auto) 0.0 Baso # (Auto) 0.1 Abs Immat Gran (auto) 0.09 H Absolute Neuts (auto) 12.8 H Absolute Nucleated RBC 0.0 Nucleated RBC % 0.0 Sodium 140 Potassium 4.1 Chloride 103 Carbon Dioxide 27 Anion Gap 10 BUN 12 Creatinine 0.70 Estim Creat Clear Calc 81 Estimated GFR > 60 Glucose 125 H Calcium 8.8 Post-procedural complaints: none Patient Feedback: Patient satisfied with anesthetic care.
[2021-06-24] MEDS: DOCUSATE SODIUM 100 MG CAPSULE PO ×2 (08:08→16:18)
[2021-06-24] MEDS: LOSARTAN POTASSIUM 50 MG TABLET PO (08:08)
[2021-06-24] MEDS: ASPIRIN 325 MG ENTERIC TABLET 650 MG PO (08:08)
[2021-06-24] MEDS: FAMOTIDINE 20 MG TABLET PO ×2 (08:08→20:10)
[2021-06-24] MEDS: ONDANSETRON INJ 4 MG/2 ML VIAL IV PUSH (08:15)
[2021-06-24] MEDS: diazePAM (*CRX) 5 MG TABLET PO (09:57)
[2021-06-24 10:00] VITALS: BP 150/73; PULSE 70; RESP 16; TEMP 37.1; O2SAT 96
[2021-06-24 14:00] VITALS: BP 147/68; PULSE 76; RESP 16; TEMP 37.2; O2SAT 96
--- NOTE | 2021-06-24 14:17 | WPDPN ---
Progress Note: A&P Additional Plan POD 1 DOING WELL. BUT NEEDS MORE PT SHE WILL REMAIN ONE MORE DAY AND HAVE MORE PT. Subjective Date/time seen: 06/24/21 14:17POD 1 DOING WELL. SLOW PROGRESS WITH PT. NO CALF PAIN Exam Extrem: Other: VSS AFEBRILE DRESSING DRY NV INTACT NEG HOMANS SIGN, CALF SOFT NON TENDER Objective Data Vital Signs Vital Signs: Vital Signs - 24 hr 06/23/21 14:26 06/23/21 14:30 06/23/21 14:45 Temperature 36.9 C Pulse Rate 72 73 82 Respiratory Rate 10 L 20 18 Blood Pressure 153/72 H 152/75 H 166/92 H Pulse Oximetry 100 98 98 06/23/21 15:00 06/23/21 15:15 06/23/21 15:30 Temperature Pulse Rate 74 72 67 Respiratory Rate 16 15 12 Blood Pressure 177/68 H 160/86 H 147/86 H Pulse Oximetry 98 98 97 06/23/21 15:45 06/23/21 15:48 06/23/21 16:00 Temperature 36.6 C Pulse Rate 84 67 72 Respiratory Rate 18 16 16 Blood Pressure 166/73 H 158/78 H Pulse Oximetry 98 97 98 06/23/21 16:03 06/23/21 16:33 06/23/21 17:33 Temperature 36.4 C 36.4 C 36.4 C Pulse Rate 72 70 57 L Respiratory Rate 16 16 17 Blood Pressure 156/75 H 153/65 H 156/76 H Pulse Oximetry 98 100 100 06/23/21 21:06 06/24/21 01:33 06/24/21 05:26 Temperature 36.3 C L 36.5 C 36.8 C Pulse Rate 70 70 72 Respiratory Rate 18 18 18 Blood Pressure 137/85 157/79 H 145/75 H Pulse Oximetry 100 99 95 06/24/21 10:00 Temperature 37.1 C Pulse Rate 70 Respiratory Rate 16 Blood Pressure 150/73 H Pulse Oximetry 96 Intake/Output Intake/Output: Intake & Output 06/21/21 06/22/21 06/23/21 06/24/21 23:59 23:59 23:59 23:59 Intake Total 1000 1250 Output Total 500 900 Balance 500 350 Meds/Results Medications: Active Medications Generic Name Dose Route Start Last Admin Trade Name Freq PRN Reason Stop Dose Admin Acetaminophen 1,000 mg 06/23/21 15:48 Acetaminophen 500 Mg Tablet PO Q6H PRN Pain Rated 1-3 Aspirin 650 mg 06/24/21 09:00 06/24/21 08:08 Aspirin 325 Mg Enteric Tablet PO 650 mg DAILY KATIANA Administration Diazepam 5 mg 06/23/21 15:48 06/24/21 09:57 Diazepam (*Crx) 5 Mg Tablet PO 5 mg Q8H PRN Administration Spasms Diphenhydramine HCl 25 mg 06/23/21 15:48 Diphenhydramine Hcl Inj 50 Mg/Ml Vial IV PUSH Q6H PRN Itching Docusate Sodium 100 mg 06/23/21 17:00 06/24/21 08:08 Docusate Sodium 100 Mg Capsule PO 100 mg BID KATIANA Administration Famotidine 20 mg 06/23/21 21:00 06/24/21 08:08 Famotidine 20 Mg Tablet PO 20 mg Q12HR KATIANA Administration Levothyroxine Sodium 88 mcg 06/24/21 06:30 06/24/21 06:46 Levothyroxine Sodium 88 Mcg Tablet PO 88 mcg DAILY@0630 KATIANA Administration Lorazepam 0.5 mg 06/23/21 15:48 Lorazepam (*Crx) 0.5 Mg Tablet PO DAILY PRN Anxiety Losartan Potassium 50 mg 06/24/21 09:00 06/24/21 08:08 Losartan Potassium 50 Mg Tablet PO 50 mg QAM KATIANA Administration Naloxone HCl 0.1 mg 06/23/21 15:48 Naloxone Hcl 0.4 Mg/Ml Vial IV PUSH Q2M PRN Opiate Reversal Ondansetron HCl 4 mg 06/23/21 15:48 06/24/21 08:15 Ondansetron Inj 4 Mg/2 Ml Vial IV PUSH 4 mg Q4H PRN Administration Nausea And Vomiting Oxycodone HCl 7.5 mg 06/23/21 15:48 06/24/21 12:09 Oxycodone Hcl (*Crx) 2.5 Mg Tab Ir PO 7.5 mg Q4H PRN Administration Pain Rated 7-10 Oxycodone/Acetaminophen 1 tablet 06/23/21 15:48 Oxycodone/Acetaminophen (*Crx) 5-325 Mg Tablet PO Q4H PRN Pain Rated 4-6 Radiology Results: ITS Impressions Knee X-Ray 06/23/21 14:49 IMPRESSION: 1. Recent right total knee arthroplasty. Labs Labs: Laboratory Results - last 24 hr 06/24/21 06/24/21 05:14 05:14 WBC 17.7 H RBC 4.37 Hgb 12.9 Hct 39.5 MCV 90.4 MCH 29.5 MCHC 32.7 RDW 12.4 Plt Count 265 MPV 11.2 H Immature Gran % (Auto) 0.5 Neut % (Auto) 72.0 Lymph % (Auto) 5.9 L [place] % (Auto) 21.3 H Eos % (Auto) 0.0 Baso % (Aut
[2021-06-24 20:00] VITALS: BP 158/68; PULSE 76; PULSE 90; RESP 16; RESP 18; TEMP 36.9; O2SAT 96; O2SAT 97
[2021-06-24] MEDS: oxyCODONE/ACETAMINOPHEN (*CRX) 5-325 MG TABLET 1 TABLET PO (20:10)
[2021-06-25 00:10] VITALS: BP 169/77; PULSE 88; RESP 18; TEMP 36.9; O2SAT 96
[2021-06-25] MEDS: oxyCODONE/ACETAMINOPHEN (*CRX) 5-325 MG TABLET 1 TABLET PO (02:39)
[2021-06-25] MEDS: LEVOTHYROXINE SODIUM 88 MCG TABLET PO (05:38)
[2021-06-25] MEDS: oxyCODONE HCL (*CRX) 2.5 MG TAB IR 7.5 MG PO ×2 (05:38→09:56)
[2021-06-25 06:00] VITALS: BP 150/74; PULSE 76; RESP 18; TEMP 36.9; O2SAT 96
--- NOTE | 2021-06-25 09:17 | PM.PNORT ---
Progress Note: A&P Assessment and Plan (1) S/P total knee arthroplasty: Qualifiers: Laterality: right Qualified Code(s): Z96.651 - Presence of right artificial knee joint Code(s): Z96.659 - Presence of unspecified artificial knee joint Status: Acute Assessment and Plan: POD #2: RIGHT TKA Continue PT/OT. WBAT. Walker. HIGH FALL RISK. Pain control. Ice. DVT prophylaxis. SCDs. Incentive Spirometry. Monitor dressing. Change prior to discharge. Dispo: Home with Home Health today (2) HTN (hypertension): Qualifiers: Hypertension type: unspecified Qualified Code(s): I10 - Essential (primary) hypertension Code(s): I10 - Essential (primary) hypertension Status: Acute Assessment and Plan: Patient with chronic HTN. BP elevated during admission. Discussed with Dr. Liu, likely due to pain s/p surgical intervention. Patient to continue current BP medication regimen. Contact PCP upon d/c to discuss BP and arrange follow up for potential medication regimen changes. Patient verbalized understanding and agrees with plan of care. Subjective Subjective Date/Time Seen: 06/25/21 08:45 Post Op day: 2 Principal diagnosis: Right Knee DJD Interval history: POD #1: Right TKA Improvement in pain today. Working well with PT/OT. Hopeful for discharge home today. Review of Systems Review of Systems: All systems reviewed & are unremarkable except as noted in HPI and below Constitutional: Constitutional: Denies fever(s) and Denies headache(s) ENT: Denies headache(s) Cardiovascular: Cardiovascular: Denies chest pain, Denies diaphoresis, Denies palpitations and Denies dyspnea Respiratory: Respiratory: Denies dyspnea Gastrointestinal: Gastrointestinal: Denies abdominal pain, Denies constipation, Denies nausea and Denies vomiting Genitourinary: Genitourinary: Reports nocturia and Denies dysuria Musculoskeletal: Musculoskeletal: Reports arthralgias (Right Knee ) and Reports joint swelling (Right Knee ) Neurologic: Denies headache(s) Endocrine: Endocrine: Denies palpitations Exam Const: General: comfortable and no acute distress Resp: Effort & Inspection: normal respiratory effort Cardio: Rate: regular rate Rhythm: regular rhythm GI: GI Palp: Yes Soft to palpation, No Tenderness to palpation present (GI) and No Guarding due to palpation present (GI) Skin: Wounds: wounds noted (right knee ) Other: Incision c/d/i. No surrounding redness/warmth. No hematoma. Mild ecchymosis. No wound dehiscence Neuro: Cognition (Neuro): normal cognition Other: NV intact. Moves toes. Sensation intact to light touch. +ankle dorsiflexion/plantarflexion. Extrem: Right lower extremity: normal to inspection, full ROM (ROM limited due to recent surgical intervention ), knee Details: tenderness (diffuse, mild ), swelling (diffuse, mild ), abnormal ROM (limited due to recent surgical intervention, expected ), ecchymosis (mild ) and warmth (mild ), lower leg (Negative Annette's Sign ) Details: normal to inspection; no tenderness, ankle (+ankle dorsiflexion/plantarflexion ) and foot (2+ pedal pulses, moves toes, sensation intact to light touch. ) Details: normal capillary refill and normal to inspection; normal to inspection Left lower extremity: normal to inspection Psych: Mental Status: mental status grossly normal Objective Data Vital Signs Vital Signs: Vital Signs - 24 hr 06/24/21 10:00 06/24/21 14:00 06/24/21 20:00 Temperature 37.1 C 37.2 C 36.9 C Pulse Rate 70 76 90 Respiratory Rate 16 16 18 Blood Pressure 150/73 H 147/68 H 158/68 H Pulse Oximetry 96 96 97 06/25/21 00:10 06/25/21 06:00 Temperature 36.9 C 36.9 C Pulse Rate 88 76 Respiratory Rate 18 18 Blood Pressure 169/77 H 150/74 H Pulse Oximetry 96 96 Intake/Output Intake/Output: Intake & Output 06/22/21 06/23/21 06/24/21 06/25/21 23:59 23:59 23:59 23:59 Intake Total 1000 2940 400 Output Total 500 2
[2021-06-25 09:25] VITALS: O2SAT 96
[2021-06-25] MEDS: ASPIRIN 325 MG ENTERIC TABLET 650 MG PO (09:51)
[2021-06-25] MEDS: FAMOTIDINE 20 MG TABLET PO (09:51)
[2021-06-25] MEDS: LOSARTAN POTASSIUM 50 MG TABLET PO (09:52)
[2021-06-25] MEDS: DOCUSATE SODIUM 100 MG CAPSULE PO (09:52)
--- NOTE | 2021-06-25 16:00 | PM.DS ---
DS: Admitting Diagnosis Discharge Date 06/25/21 Admitting Diagnosis Right total knee arthroplasty DS: Discharge Diagnosis Discharge Diagnosis (1) S/P total knee arthroplasty: Qualifiers: Laterality: right Qualified Code(s): Z96.651 - Presence of right artificial knee joint Code(s): Z96.659 - Presence of unspecified artificial knee joint Status: Acute Assessment and Plan: POD #2: RIGHT TKA Continue PT/OT. WBAT. Walker. HIGH FALL RISK. Pain control. Ice. DVT prophylaxis. SCDs. Incentive Spirometry. Monitor dressing. Change prior to discharge. Dispo: Home with Home Health today (2) HTN (hypertension): Qualifiers: Hypertension type: unspecified Qualified Code(s): I10 - Essential (primary) hypertension Code(s): I10 - Essential (primary) hypertension Status: Acute Assessment and Plan: Patient with chronic HTN. BP elevated during admission. Discussed with Dr. Liu, likely due to pain s/p surgical intervention. Patient to continue current BP medication regimen. Contact PCP upon d/c to discuss BP and arrange follow up for potential medication regimen changes. Patient verbalized understanding and agrees with plan of care. DS: Summary Hospital Course Reason for hospitalization: right total knee arthroplasty Hospital Course: 65-year-old female admitted status post right total knee arthroplasty for postoperative medical management, pain control and mobilization with physical and occupational therapy. Patient has slow progression with PT and OT on postop day 1. She also had difficulty with pain control on postop day 1. She did very well on postop day 2. She was working well with PT and OT and her pain was better controlled. She did have some elevation in blood pressure. She is chronically on Cozaar for hypertension. She reports that her blood pressure has been elevated for the last several months. She does have an appointment scheduled with her primary care provider however we recommend that she follow-up with them sooner. She should continue her current hypertension medication regimen. She has been cleared by PT and OT to be discharged home with home health. Medications have been sent to her pharmacy. She will follow up in the outpatient orthopedic clinic in 3 weeks for repeat radiographs. She will be discharged home on anticoagulation as well. Status at Discharge Functional status at discharge: uses cane/walker Overall status at discharge: patient is progressing back to baseline Time Spent with Patient Time attestation: Total time spent providing and/or coordinating discharge services: Time spent: Less than 30 minutes Exam Const: General: comfortable and no acute distress Resp: Effort & Inspection: normal respiratory effort Cardio: Rate: regular rate Rhythm: regular rhythm Skin: Wounds: wounds noted (right knee ) Other: Incision c/d/i. No surrounding redness/warmth. No hematoma. Mild ecchymosis. No wound dehiscence Neuro: Cognition (Neuro): normal cognition Other: NV intact. Moves toes. Sensation intact to light touch. +ankle dorsiflexion/plantarflexion. Extrem: Right lower extremity: normal to inspection, full ROM (ROM limited due to recent surgical intervention ), knee Details: tenderness (diffuse, mild ), swelling (diffuse, mild ), abnormal ROM (limited due to recent surgical intervention, expected ), ecchymosis (mild ) and warmth (mild ), lower leg (Negative Annette's Sign ) Details: normal to inspection; no tenderness, ankle (+ankle dorsiflexion/plantarflexion ) and foot (2+ pedal pulses, moves toes, sensation intact to light touch. ) Details: normal capillary refill and normal to inspection; normal to inspection Left lower extremity: normal to inspection Psych: Mental Status: mental status grossly normal Discharge Plan Discharge Attending physician on discharge: Eric Liu Discharging Clinician: Carissa Reddy
== END 2021-06-25 11:30 | disposition home health service (06) ==
LOC: ANHSURGERY 15:51 → ANH2MED 15:51
PROVIDERS: Admitting Provider Orthopaedic Surgery; PCP Internal Medicine; Visit Provider Orthopaedic Surgery
PROC: (CPT 27447; principal; 2021-06-23 12:00)
DX: M17.11 Unilateral primary osteoarthritis, right knee (principal); I10 Essential (primary) hypertension; E03.9 Hypothyroidism, unspecified; G89.18 Other acute postprocedural pain
CPT/HCPCS: 27447; 64447; 36415; 73560; 80048; 80307; 81003; 82040; 83036; 85025; 85610; 85730; 86850; 86900; 86901; 87081; 93005; 97110; 97116; 97161; 97165; 97530; 97535; A9270; C1713; C1776; G0378; J0171; J0690; J1100; J1170; J2250; J2270; J2405; J2704; J2795; J3010; J7030; J7120

== ENCOUNTER 2021-08-25 10:30 | Outpatient (RCR) | payer OTHER, SELFPAY ==
--- NOTE | 2021-07-23 10:44 | PTOPEVAL ---
PHYSICAL THERAPY EVALUATION AND PLAN OF CARE 07-23-21 Thank you for referring Zara Love to [facility], s/p R TKR. She is scheduled to be seen for therapy? 2x/week for 4 weeks. Please review, sign, date and return this plan of care LINDSEY. I agree with and certify that the following plan of care is medically necessary. Referring Physician Date Attending Provider: Eric Liu MD PT Outpatient Evaluation Document 07/23/21 09:35 OSMANY (Rec: 07/23/21 10:44 OSMANY [id number]) Therapy Assessment Status Past Medical History Source of Past Medical History Recalled from Previous Visit, Confirmed with Patient/Family Neurological History Hx Neurological Disorders No Significant History Cardiovascular History Hx Hypertension Yes: med control Respiratory History Hx Pneumonia Yes Gastrointestinal History Hx Appendectomy Yes Hx Cholecystectomy Yes Hx Gastric Bypass Surgery Yes: 2016 GASTRIC SLEEVE Genitourinary History Hx Genitourinary Disorders No Significant History Musculoskeletal History Hx Crutches or Walker Use Yes Query Text:If Yes, Enter Crutches, Walker, or Both in the Comment Hx Joint Replacement Yes: L TKR, L THR; this admission R TKR Hematological History Hx Blood Transfusions Yes: POST 1976 Endocrine History Hx Hypothyroidism Yes: meds HEENT History Hx Tonsillectomy Yes: CHILDHOOD Hx Other HEENT Disorders Yes: FULL SET DENTURES Integumentary History Hx Skin Disorders No Significant History Reproductive History Hx Section Yes: X3 Hx Tubal Ligation Yes Psychosocial History Hx Anxiety Yes Pain History Has Past Pain Affected Your Daily Life Yes: PRIOR TO JOINT REPLACEMENTS-KNEES/HIP Anesthesia History Hx Post-Op Nausea/Vomiting Yes: MILD NAUSEA IN PAST Other History Hx Other Medical Conditions Yes: have had covid vaccine and booster Evaluation Information Problem Diagnosis S/P R TKR Onset 06-23-21 Subjective Information had [facility] PT services; use Query Text:As Reported By Patient/ wheeled walker; doing HEP- Family supine,stand and walking as much as able to get stronger; do not have endurance back yet; feel like balance is off- have not fallen, but sometimes feel like I am going to fall; Prior Level of Function Activity Level (Last 3 Months) Occupation work at [employer]. from home due to
--- NOTE | 2021-08-11 10:31 | PCPTNOTE ---
Patient called to cancel stating she does not feel well.
--- NOTE | 2021-08-20 09:25 | PCPTNOTE ---
pt called and canceled today's reevaluation;
--- NOTE | 2021-08-21 09:08 | PCPTNOTE ---
pt called and canceled today's reeval
--- NOTE | 2021-08-25 10:16 | PTOPEVAL ---
PHYSICAL THERAPY DISCHARGE REPORT 08-25-21 Refer to the clinical summary below, for her status today, compared to the initial evaluation. She has met all of the goals, except knee extension to 0' and hip extension to 5'. Thank you for referring Zara [facility] to [facility] Please review, sign, date and return this Discharge report LINDSEY. I agree with and certify that the following plan of care is medically necessary. 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; doing exercises most of the time; is doing well and do not need anymore therapy; Pain Assessment Timing of Pain Assessment Timing of Pain Assessment Assessment Pain Scale Pain Scale Used Numeric (1 - 10) Self Report Pain Assessment Right Knee(s) Reported Pain Level 1 Pain Description Soreness Pain Frequency Chronic,Continuous Lowest Pain Intensity 1 Greatest Pain Intensity 2 Pain Score Pain Score 1: Self Report Additional Pain Score Comments reports walking/activity tolerance of 1-2 hours; no problems with sleeping--is in the bed and not wake up due to knee pain knee is still a little swollen ; have not used ice much lately, maybe only 1 time in past few weeks; Interventions Used Interventions Used By Clinicians Education,Exercise Pain Relief Interventions Used By Inactivity/Rest Patient Lower Extremity Range of Motion General Lower Extremity Range of Motion Gross Lower Extremity Range of Motion L knee active ROM: flexion in Comments sitting 130'/ active extension in sitting (-5') and supine stretch to 0' L hip extension 0' with stretch in supine with R LE over edge bed; active ROM (-5) Lower Extremity Muscle Strength Testing General Lower Extremity Strength Gross L
== END 2021-08-26 17:20 | disposition home or self-care (01) ==
LOC: ANHPT 10:30
PROVIDERS: PCP Internal Medicine; Referring Provider Orthopaedic Surgery; Visit Provider Orthopaedic Surgery
DX: Z47.1 Aftercare following joint replacement surgery (principal); Z96.651 Presence of right artificial knee joint
CPT/HCPCS: 97014; 97110; 97161; G0283

== ENCOUNTER 2022-03-30 22:16 | Emergency (ER) | payer MEDICARE, SELFPAY ==
--- NOTE | ~2022-03-30 | CT_ITS ---
EXAMINATION: CTA chest PE protocol DATE: 03/31/2022 08:08 CDT INDICATION: Chest pain and shortness of breath TECHNIQUE: Computed tomographic angiography (CTA) of the chest was performed with 100 mL Omnipaque-35 0 intravenous contrast. The dose-length product was 615.91 mGy-cm. Maximum intensity projection 3D-re constructions of the aorta and other arteries were constructed by the technologist on a separate work station. COMPARISON: None. FINDINGS: Study is technically adequate without evidence for pulmonary embolism. No significant peric ardial effusion. Small pleural effusions. No evidence for aortic aneurysm or dissection. There is dep endent atelectasis. No endobronchial lesions. No pneumothorax. There is mild interlobular septal thic kening with pleural thickening in the right upper lobe. IMPRESSION: 1. No evidence for pulmonary embolism. 2: Small pleural effusions with bibasilar dependent atelectasis. 3: Mild right upper lobe interstitial lung disease, nonspecific. Reviewed, dictated and finalized at location B.
[2022-03-30 22:22] VITALS: BP 173/99; PULSE 99; RESP 19; TEMP 37.1; O2SAT 93
[2022-03-30 22:33] VITALS: PULSE 99
--- NOTE | 2022-03-30 22:38 | ECG_ITS ---
Measurements Intervals [place] Rate: 99 P: 20 NH: 145 QRS: 8 QRSD: 85 T: 18 QT: 334 QTc: 429 Interpretive Statements SINUS RHYTHM WITH OCCASIONAL VENTRICULAR PREMATURE COMPLEXES NONSPECIFIC ST ABNORMALITY ABNORMAL ECG Electronically Signed On 03-31-2022 10:46:11 CDT by Zafar rGace M.D.
[2022-03-30] MEDS: MORPHINE SULFATE (*CRX) 4 MG/ML INJ IV PUSH (22:51)
[2022-03-30 22:57] VITALS: O2SAT 95
[2022-03-30 22:58] LABS: Basophils Percent Auto 0.3 % (0.2-1.2); Eosinophils Absolute Auto 0.1 K/mm3 (0-0.3); Eosinophils Percent Auto 1.2 % (0-4.4); Hematocrit 42.4 % (37.0-47.0); Hemoglobin 13.7 g/dL (12.0-15.0); Immature Granulocyte Absolute 0.03 K/mm3 (0.00-0.031); Immature Granulocyte Percent A 0.3 % (0-0.5); Lymphocytes Percent Auto 9.2 % (18.3-44.2); Mean Corpuscular HGB Conc 32.3 g/dl (32-36); Mean Corpuscular Hemoglobin 27.6 pg (26-34); Mean Corpuscular Volume 85.5 fl (80-100); Mean Platelet Volume 11.1 fl (7.4-10.4); Monocytes Absolute Auto 1.5 K/mm3 (0.1-0.6); Monocytes Percent Auto 15.6 % (2.6-8.5); Neutrophils Absolute Auto 7.2 K/mm3 (1.3-6.7); Neutrophils Percent Auto 73.4 % (45.5-73.1); Platelet Count Result 238 k/mm3 (150-375); Red Blood Count 4.96 M/mm3 (4.2-5.4); Red Cell Distribution Width 13.2 % (11.5-14.5); White Blood Count 9.8 K/mm3 (4.5-10.0)
[2022-03-30 23:08] LABS: Alanine Aminotransferase 13 U/L (6-35); Alkaline Phosphatase 83 U/L (38-126); Anion Gap 11 mmol/L (8-16); Aspartate Amino Transferase 21 U/L (14-36); Bilirubin,Total 0.6 mg/dL (0.2-1.3); Blood Urea Nitrogen 14 mg/dL (7-17); Calcium 8.9 mg/dL (8.4-10.2); Carbon Dioxide 24 mmol/L (22-30); Chloride 101 mmol/L (98-107); Estimated CRCL calculation 95 ml/min; Estimated Glomerular Filt Rate > 60; Glucose 135 mg/dL (65-110); Sodium 136 mmol/L (137-145)
[2022-03-30 23:09] LABS: INR 1.1; Partial Thromboplastin Time 29.5 SECONDS (22.3-36.8); Prothrombin Time 13.9 Seconds (11.1-14.7)
[2022-03-30 23:20] VITALS: BP 111/55; PULSE 88; RESP 20; O2SAT 97
[2022-03-30 23:20] LABS: Troponin I < 0.012 ng/mL (0.000-0.034)
[2022-03-31 01:27] VITALS: BP 133/79; PULSE 86; RESP 21; O2SAT 94
[2022-03-31] MEDS: MORPHINE SULFATE (*CRX) 4 MG/ML INJ IV PUSH (01:27)
[2022-03-31 02:20] LABS: Troponin I < 0.012 ng/mL (0.000-0.034)
[2022-03-31 03:21] VITALS: BP 129/79; PULSE 85; RESP 19; O2SAT 94
[2022-03-31] MEDS: KETOROLAC 30 MG/ML VIAL (*BKC) IV PUSH (03:33)
--- NOTE | 2022-03-31 03:33 | ED.GENADULT ---
HPI - General Adult General Chief complaint: Chest Pain Stated complaint: CHEST PAIN WITH SOB Time Seen by Provider: 03/30/22 22:27 History of Present Illness HPI narrative: Patient is a 66-year-old female who presents ER with chest pain and difficulty breathing. Ongoing over the last week and worsening. Constant tonight after going to her son's baseball game. Worse with physical movements of her body as well as with deep breath. No hemoptysis. Reports low-grade fevers at times. No sinus congestion or sore throat. He is having occasional cough. No lower extremity swelling or cramping. No history of heart disease or DVT. Has not take any pain medication for this. Related Data Home Medications Medication Instructions Recorded Confirmed levothyroxine 88 mcg tablet 88 mcg PO QAM 06/10/21 10/09/21 lorazepam 0.5 mg tablet 0.5 mg PO DAILY PRN Anxiety 06/10/21 10/09/21 losartan 50 mg tablet 50 mg PO QAM 06/10/21 10/09/21 naproxen sodium 220 mg capsule 220 mg PO BID PRN Pain 06/10/21 10/09/21 (Aleve) Allergies Allergy/AdvReac Type Severity Reaction Status Date / Time codeine AdvReac Unknown Nausea,gastric Verified 03/30/22 22:36 distress Review of Systems Review of Systems: All systems reviewed & are unremarkable except as noted in HPI and below Constitutional: Constitutional: Denies chills, Denies fatigue, Reports fever(s) and Denies weakness ENT: Denies nasal congestion and Denies sore throat Cardiovascular: Cardiovascular: Reports chest pain, Denies rapid heart rate, Denies radiating jaw, neck or arm pain and Denies slow heart rate Respiratory: Respiratory: Denies chest congestion, Reports cough, Reports dyspnea and Denies wheezing Gastrointestinal: Gastrointestinal: Denies abdominal pain, Denies nausea and Denies vomiting Musculoskeletal: Musculoskeletal: Denies back pain and Denies arthralgias [facility] Past Medical History Medical History Anxiety Arthritis Degenerative joint disease of left hip HTN (hypertension) Hypothyroidism Obesity Right knee DJD Surgical History Surgical History History of History of cholecystectomy History of sleeve gastrectomy 2016 History of tonsillectomy History of tubal ligation S/P total hip arthroplasty S/P total knee arthroplasty Family History Family History Other Diabetes mellitus Family history of coronary artery disease Family history of malignant neoplasm Hypertension Social History Social History Second hand tobacco smoke exposure: No Additional smoking assessment comments: DENIES ANY FORM OF TOBACCO USE Alcohol intake: former Drinks per week: 1 Alcohol use details: BEER Substance use: never Substance use type: does not use Additional living arrangements comments: [facility] Spiritual care concerns: No Exam Narrative: GENERAL: Well-appearing, well-nourished, and in no acute distress. HEAD: Normocephalic, atraumatic. ENT: Mucous membranes moist. CHEST: Clear to auscultation. No respiratory distress. Patient having pain when she inhales. HEART: Regular rate and rhythm. No murmur heard. Normal peripheral pulses. ABDOMEN: Soft, nontender, nondistended. EXTREMITIES: Normal range of motion. No edema. SKIN: Warm, dry, no rash. NEURO: Alert and oriented x3. PSYCH: Normal mood and affect. Course Course Emergency Course: Patient feels much better with Toradol and who previously had morphine. Troponins negative x2. CTA without PE. Symptoms felt to be related to pleurisy patient be started on anti-inflammatories for home. Vital Signs Vital signs: Vital Signs Temperature 98.7 F 03/30/22 22:22 Pulse Rate 99 03/30/22 22:22 Respiratory Rate 19 03/30/22 22:22 Blood Pressure 173/99 H
[2022-03-31 04:52] VITALS: BP 133/73; PULSE 72; RESP 21; O2SAT 93
== END 2022-03-31 04:53 | disposition home or self-care (01) ==
PROVIDERS: Emergency Provider Emergency Medicine; PCP Internal Medicine
DX: R09.1 Pleurisy (principal); I10 Essential (primary) hypertension; E03.9 Hypothyroidism, unspecified; M16.12 Unilateral primary osteoarthritis, left hip; M17.11 Unilateral primary osteoarthritis, right knee; E66.9 Obesity, unspecified; Z68.32 Body mass index [BMI] 32.0-32.9, adult; F41.9 Anxiety disorder, unspecified; Z98.84 Bariatric surgery status; Z96.649 Presence of unspecified artificial hip joint; Z96.659 Presence of unspecified artificial knee joint; I49.3 Ventricular premature depolarization; R94.31 Abnormal electrocardiogram [ECG] [EKG]
CPT/HCPCS: 36415; 71275; 80053; 84484; 85025; 85610; 85730; 93005; 96374; 96375; 96376; 99284; J1885; J2270; Q9967

== ENCOUNTER 2022-10-29 08:51 | Outpatient (CLI) | payer MEDICARE, SELFPAY ==
[2022-10-29 10:54] LABS: Basophils Absolute Auto 0.2 K/mm3 (0.0-0.1); Basophils Percent Auto 1.6 % (0.2-1.2); Eosinophils Absolute Auto 0.3 K/mm3 (0-0.3); Eosinophils Percent Auto 2.5 % (0-4.4); Hematocrit 42.8 % (37.0-47.0); Hemoglobin 13.9 g/dL (12.0-15.0); Immature Granulocyte Absolute 0.02 K/mm3 (0.00-0.031); Immature Granulocyte Percent A 0.2 % (0-0.5); Lymphocytes Absolute Auto 1.73 K/mm3 (0.9-3.2); Lymphocytes Percent Auto 17.5 % (18.3-44.2); Mean Corpuscular HGB Conc 32.5 g/dl (32-36); Mean Corpuscular Hemoglobin 28.5 pg (26-34); Mean Corpuscular Volume 87.7 fl (80-100); Mean Platelet Volume 10.9 fl (7.4-10.4); Monocytes Absolute Auto 2.2 K/mm3 (0.1-0.6); Monocytes Percent Auto 22.4 % (2.6-8.5); Neutrophils Absolute Auto 5.5 K/mm3 (1.3-6.7); Neutrophils Percent Auto 55.8 % (45.5-73.1); Platelet Count Result 290 k/mm3 (150-375); Red Blood Count 4.88 M/mm3 (4.2-5.4); Red Cell Distribution Width 14.6 % (11.5-14.5); White Blood Count 9.9 K/mm3 (4.5-10.0)
[2022-10-29 10:57] LABS: Albumin Level 4.7 g/dL (3.5-5.1); Anion Gap 9 mmol/L (8-16); Blood Urea Nitrogen 18 mg/dL (7-17); Calcium 9.1 mg/dL (8.4-10.2); Carbon Dioxide 28 mmol/L (22-30); Chloride 102 mmol/L (98-107); Estimated Glomerular Filt Rate > 60; Glucose 99 mg/dL (65-110); Potassium 4.6 mmol/L (3.4-5.0); Sodium 139 mmol/L (137-145)
[2022-10-29 10:59] LABS: Hemoglobin A1C 5.9 % (<5.7); INR 1.4; Prothrombin Time 16.5 Seconds (11.1-14.7)
[2022-10-29 11:00] LABS: Partial Thromboplastin Time 36.5 SECONDS (22.3-36.8)
[2022-10-29 11:05] LABS: Appearance Urine Clear (Clear); Bacteria Urine None Seen /hpf; Bilirubin Urine Negative (Negative); Blood Urine Trace (Negative); Color Urine Yellow (Yellow); Glucose Urine UA Negative (Negative); Ketones Urine Negative (Negative); Leukocyte Esterase Ur Negative LEU/UL (Negative); Nitrate Urine Negative (Negative); Non Pathogenic Casts 0-2; Protein Urine Negative (Negative); RBC Urine 0-2 /hpf (0-2); Specific Grav Ur 1.014 (1.001-1.035); Squamous Epithelial Cell Urine None seen /hpf (Few); Urine Cotinine NEGATIVE; WBC Urine 0-5 /hpf; pH Urine 6.5 (5.0-9.0)
[2022-10-29 11:18] LABS: Add Urine Microscopic? YES
== END 2022-10-29 08:52 | disposition home or self-care (01) ==
LOC: ANHSURGERY 09:00
PROVIDERS: PCP Internal Medicine; Visit Provider Orthopaedic Surgery
DX: Z01.818 Encounter for other preprocedural examination (principal); M16.11 Unilateral primary osteoarthritis, right hip
CPT/HCPCS: 80048; 80307; 81001; 82040; 83036; 85025; 85610; 85730; 86850; 86900; 86901; 87081

== ENCOUNTER 2022-11-09 00:18 | Day surgery (SDC) | payer MEDICARE, SELFPAY ==
[2022-10-29 09:18] VITALS: BP 131/76; PULSE 54; RESP 16; TEMP 36.8; O2SAT 98; BMI 35.9
--- NOTE | 2022-10-29 09:40 | PC.NURSE ---
Report to the Outpatient Waiting Room, entrance under the green pavilion located off [facility], at time __10:00AM____ on date __11/09/22 . Planned Procedure Time: __12:00PM . Time changes happen often and if your time is changed the preop area will call you the afternoon before. - You and your visitor will be asked to self-screen and do not enter if you have any COVID symptoms. - Only one visitor is requested with a max of two and NO children visitors are allowed at this time. - The patient visitor may be requested to leave or wait in car when not with patient due to distancing restrictions. - A mask is optional within the hospital at this time. Patients may have clear liquids (water, carbonated beverages, clear teas, apple juice) until 3 hours prior to surgery with a maximum of 20 ounces. - No food from midnight until time of surgery Take the following medications with a SIP of water the morning of surgery: ___ALBUTEROL INHALER NEEDED, DILTIAZEM, LEVOTHYROXINE, METOPROLOL DO NOT STOP ANY OF YOUR OTHER PRESCRIPTION MEDICATIONS PRIOR TO SURGERY ?EXCEPT THE FOLLOWING Medications to discontinue per physician ____HOLD ELIQUIS 5 DAYS PRE-OP- LAST DOSE 11/03/22, HOLD ALL VITAMINS/SUPPLEMENTS 3 DAYS PRE-OP- LAST DOSE 11/05/22 Please no make-up, nail romanian, hairspray, perfume, deodorant, or body powder the day of surgery. No jewelry (including any body piercings) or valuables the day of surgery, leave them at home. Please take a shower or bath the night before, or the morning of, surgery with an antibacterial soap. Wear comfortable, loose fitting clothing. Children are encouraged to wear pajamas. - Jewelry must be removed prior to entering the operating room. Rings and piercings that are not removed may be cut off. - The hospital will not accept responsibility for valuables. - Please leave all valuables, including medications, at home the day of surgery. If you are going home after surgery, a licensed grain combine driver must drive you home. - NO public transportation without another adult if you receive anesthesia. - We recommend that an adult stay with you for 24 hours following discharge. - We also recommend that you do not drive, make important decision, drink alcoholic beverages, or take any drugs that were not prescribed by your health care provider for at least 24 hours after your discharge time. Follow any additional instructions given to you from your surgeon. If you or anyone in your household have experienced Covid symptoms in the past week, please notify your surgeon or the nurse liaison at the phone number below for possible testing. Telephone instructions given to _PATIENT__and asked if any additional questions and then verbalized understanding. Patient advised to call surgeon office or pre surgery nurse liaison [phone] if any additional questions.
[2022-11-09] VITALS (13 sets, daily range): BP systolic 100–149; BP diastolic 37–96; PULSE 53–72; RESP 10–18; TEMP 36.3–36.6; O2SAT 94–100
--- NOTE | ~2022-11-09 | XR_ITS ---
EXAMINATION: XR hip RT min 2V DATE: 11/09/2022 15:45 INDICATION: Right total hip arthroplasty TECHNIQUE: 2 views right hip FINDINGS: There is a right total hip arthroplasty in expected position. Subcutaneous gas with soft t issue swelling are consistent with recent surgery. IMPRESSION: 1. Recent right total hip arthroplasty. Reviewed, dictated and finalized at location A.
--- NOTE | 2022-11-09 10:36 | WPDANESEPPF ---
Anes - Initial Pre Proc Eval Procedure: Operation Date: 11/09/22 12:00 Proposed Procedures p Right Total Hip Arthroplasty - Eric Liu MD Date/Time: 11/09/22 10:36 Surgeon: Eric Liu MD Pre Op Diagnosis: right hip djd Patient Data Age: 67 Gender: F Height: 1.61 m Weight: 93.5 kg Last Vital Signs Temp 36.3 C L 11/09/22 10:10 Pulse 58 L 11/09/22 10:10 Resp 18 11/09/22 10:10 BP 137/75 11/09/22 10:10 Pulse Ox 100 11/09/22 10:10 O2 Del Method Room Air 11/09/22 10:10 Allergies Allergy/AdvReac Type Severity Reaction Status Date / Time codeine Allergy Unknown Nausea,gastric Unverified 11/08/22 12:37 distress,Nausea,gastric distress Home Medications Medication Instructions Recorded Confirmed Type levothyroxine 88 mcg tablet 88 mcg PO QAM 06/10/21 10/29/22 History naproxen sodium 220 mg capsule 220 mg PO BID PRN Pain 06/10/21 10/29/22 History (Aleve) albuterol sulfate 90 mcg/actuation 1 inh inhalation Q4-6H PRN Dyspnea 10/29/22 10/29/22 History aerosol inhaler apixaban 5 mg tablet (Eliquis) 5 mg PO BID 10/29/22 10/29/22 History atorvastatin 80 mg tablet 80 mg PO DAILY 10/29/22 10/29/22 History diltiazem HCl 60 mg tablet 60 mg PO BID 10/29/22 10/29/22 History famotidine 40 mg tablet 40 mg PO BID 10/29/22 10/29/22 History fluticasone furoate 100 1 inh inhalation QPM 10/29/22 10/29/22 History mcg-vilanterol 25 mcg/dose inhalation powder (Breo Ellipta) lorazepam 0.5 mg tablet 0.5 mg PO HS 10/29/22 10/29/22 History losartan 100 mg tablet 100 mg PO QAM 10/29/22 10/29/22 History magnesium oxide 400 mg (241.3 mg 400 mg PO BID 10/29/22 10/29/22 History magnesium) tablet metoprolol tartrate 50 mg tablet 25 mg PO BID 10/29/22 10/29/22 History spironolactone 25 mg tablet 25 mg PO QAM 10/29/22 10/29/22 History Patient hx anesthesia problems: none Family hx anesthesia problems: none Results Review: All pre-operative results and documents have been reviewed as part of the pre-operative evaluation. [facility] Past Medical History Medical History Anxiety Arthritis Degenerative joint disease of left hip HTN (hypertension) Hypothyroidism Obesity Right knee DJD Surgical History Surgical History History of History of cholecystectomy History of sleeve gastrectomy 2016 History of tonsillectomy History of tubal ligation S/P total hip arthroplasty S/P total knee arthroplasty Family History Family History Other Diabetes mellitus Family history of coronary artery disease Family history of malignant neoplasm Hypertension Social History Social History Smoking status: Never smoker Second hand tobacco smoke exposure: Yes (IN THE PAST) Additional smoking assessment comments: DENIES ANY FORM OF TOBACCO USE Alcohol intake: former Drinks per week: 1 Alcohol use details: BEER Substance use: never Substance use type: does not use Living arrangements: with family Additional living arrangements comments: HUSB Spiritual care concerns: No Anes - Eval Final PreProcedure Day of Procedure 11/09/22 10:36 Patient weight: obese Heart: regular rate and rhythm Lungs: decreased breath sounds Airway: Mallampati scale Neurological: alert and oriented Last oral intake: >/= 8 hours ASA classification: III Emergent: no Anesthetic plan: proceed Anesthesia type and monitoring: general ETT and standard monitoring Results Review: All pre-operative results and documents have been reviewed as part of the pre-operative evaluation. Informed Consent: The patient's anesthetic plan and its attendant risks and benefits were discussed with the patient/family/POA. Questions were solicited and answers provided to the
[2022-11-09] MEDS: LACTATED RINGERS 1,000 ML 30 ML IV CONT ×2 (10:45→15:32)
[2022-11-09] MEDS: ACETAMINOPHEN 500 MG TABLET 1000 MG PO (10:47)
[2022-11-09] MEDS: TRANEXAMIC ACID 1,000MG/ISO100 1,000 MG/100 ML BAG 200 MG IVPB (10:48)
--- NOTE | 2022-11-09 10:49 | WPDHPUPDATE1 ---
History and Physical Update Update Date/Time: 11/09/22 10:49 History and Physical has been reviewed, including an updated exam of the patient. There are NO changes in the patient's condition. Risks, benefits, and alternatives have been discussed and questions answered. Patient agrees to proceed with procedure.
[2022-11-09 11:05] LABS: INR 1.1; Prothrombin Time 14.1 Seconds (11.1-14.7)
[2022-11-09 11:06] LABS: Partial Thromboplastin Time 30.6 SECONDS (22.3-36.8)
[2022-11-09] MEDS: ceFAZolin 2 GM/D5W 50 ML 2 GM/50 ML BAG IVPB ×2 (12:25→20:32)
[2022-11-09] MEDS: TRANEXAMIC ACID 1,000 MG/10 ML AMPUL 1000 MG IV PUSH (14:28)
--- NOTE | 2022-11-09 15:34 | P.OP_ITS ---
Procedure Note - Detailed Date of Procedure 11/09/22 Pre-op Diagnosis right hip djd Post-op Diagnosis Same Procedure Performed R LUC Surgeon Eric Liu MD Anesthesia General Indications RIGHT HIP SEVERE DJD Description of Procedure THE PATIENT WAS TAKEN TO THE OPERATING ROOM IN STABLE CONDITION AND WAS PLACED IN THE LATERAL DECUBITUS AND THE RIGHT LOWER EXTREMITY WAS PREPPED AND DRAPED IN THE STERILE FASHION. INCISION WAS MADE IN THE POSTERIOR LATERAL SIDE OF THE HIP, DOWN TO THE FASCIA LAYER. THE FASCIA WAS INCISED. THE HIP WAS EXPOSED. THE SHORT EXTERNAL ROTATORS WERE EXPOSED. THE SCIATIC NERVE WAS IDENTIFIED. INCISION WAS MADE THROUGH THE SHORT EXTERNAL ROTATORS AND THE CAPSULE OF THE HIP JOINT. THE HIP WAS DISLOCATED. AN OSTEOTOMY WAS MADE TO THE FEMORAL NECK ABOUT 1 CM PROXIMAL TO THE LESSER TROCHANTER. THE ACETABULUM WAS EXPOSED. THERE WAS SEVERE DJD SEEN. BEGINNING WITH A 44 REAMER THE ACETABULUM WAS REAMED TO 51 MM. A 51 MM TRIAL WAS PLACED IN 35 DEG OF ABDUCTION AND ANTEVERSION WAS IN ALIGNMENT WITH THE TRANS ACETABULAR LIGAMENT. THE FIT WAS EXCELLENT. THE TRIAL WAS REMOVED. A 52 MM BIOMET G7 COMPONENT WAS THEN TAPPED IN TO PLACE IN 35 DEG OF ABDUCTION AND ANTEVERSION IN ALIGNMENT WITH THE TRANSVERSE ACETABULAR LI GAMENT. THE FIT WAS EXCELLENT. THE ACETABULAR LINER WAS PLACED AND CHECKED FOR STABILITY. NEXT THE FEMUR WAS PREPARED WITH INITIAL CANAL FINDER THEN SEQUENTIAL BROACHING WITH A TAPERLOC HIP SYSTEM, UNTIL A 11 BROACH FIT WELL IN 15 OF ANTEVERSION. A -3 STANDARD OFFSET NECK WITH 36 MM HEAD TRIAL WAS PLACED. THE SHUCK TEST WAS EXCELLENT AND THE STABILITY IN FLEXION AND ROTATION WAS EXCELLENT. LEG LENGTHS WERE GROSSLY EQUAL. TRIALS WERE REMOVED. A BIOMET TAPERLOC 11 STEM WAS PLACED WITH A STANDARD OFFSET NECK. THE FIT WAS EXCELLENT IN 15 DEG OF ANTEVERSION. A -3 CERAMIC 36 MM FEMORAL HEAD WAS PLACED. THE HIP WAS TRIALED AND THE STABILITY WAS EXCELLENT WERE THE LEG LENGTHS AND THE SHUCK TEST. THE WOUND WAS IRRIGATED WITH STERILE BETADINE AND WATER FOR 3 MIN. THEN WASHED AGAIN. THE SCIATIC NERVE WAS IDENTIFIED AGAIN. THE CAPSULE AND THE EXTERNAL ROTATORS WERE APPROXIMATED WITH NUMBER 1 VICRYL. THE FASCIA WITH No 2 QUIL AND THE SUB CUTANEOUS LAYER WITH 2-0 ABSORBABLE SUTURE AND A RUNNING 3-0 SUBCUTICULAR STITCH FOR THE SKIN. DERMABOND WAS PLACED AND STERILE DRESSING WAS APPLIED. PATIENT WAS PLACED BACK ON TO THE SUPINE POSITION AND WAS EXTUBATED Estimated Blood Loss 600 Complications No immediate complications Condition Stable Disposition PACU
[2022-11-09] MEDS: fentaNYL CITRATE INJ (*CRX) 100 MCG/2 ML VIAL 25 MCG IV PUSH ×6 (16:00→16:50)
[2022-11-09] MEDS: ONDANSETRON INJ 4 MG/2 ML VIAL IV PUSH (16:59)
[2022-11-09] MEDS: HYDROcodone/acetaminophen (*CRX) 7.5-325 MG TABLET 1 TAB PO ×2 (17:42→20:32)
[2022-11-09] MEDS: DEXTROSE 5%/0.45% SOD CHL 1,000 ML 80 ML IV CONT (17:42)
[2022-11-09] MEDS: KETOROLAC 15 MG/ML VIAL (*BKC) IV PUSH (17:43)
[2022-11-09] MEDS: FAMOTIDINE 20 MG TABLET 40 MG PO (17:44)
[2022-11-09] MEDS: MAGNESIUM OXIDE 400 MG TABLET PO (17:44)
[2022-11-09] MEDS: SENNA/DOCUSATE SODIUM TABLET 2 TAB PO (17:45)
--- NOTE | 2022-11-09 18:04 | ADMGEN ---
This patient, Zara Love, was admitted to 2 Medical Room 257-01. Patient/family oriented to hospital policies and general routines including ID bracelet, bed and alarms, visiting hours, pain management, procedures, bathroom and other care routines, personal items, smoking policy, room service/diet, and visiting hours. Information on how to activate the Rapid Response Team has been discussed. Patient/Family are encouraged to report perceived risks to care and to ask questions if they do not understand what they are told or what they should do.
[2022-11-09] MEDS: LORazepam (*CRX) 0.5 MG TABLET PO (20:33)
[2022-11-10] MEDS: KETOROLAC 15 MG/ML VIAL (*BKC) IV PUSH ×3 (00:20→11:35)
[2022-11-10 02:36] VITALS: BP 109/60; PULSE 65; RESP 18; TEMP 36.3; O2SAT 97
[2022-11-10] MEDS: ceFAZolin 2 GM/D5W 50 ML 2 GM/50 ML BAG IVPB ×2 (03:36→11:36)
[2022-11-10] MEDS: HYDROcodone/acetaminophen (*CRX) 7.5-325 MG TABLET 1 TAB PO ×3 (03:40→14:28)
[2022-11-10 05:04] LABS: Basophils Percent Auto 0.2 % (0.2-1.2); Eosinophils Percent Auto 0.2 % (0-4.4); Hematocrit 33.5 % (37.0-47.0); Immature Granulocyte Absolute 0.08 K/mm3 (0.00-0.031); Immature Granulocyte Percent A 0.4 % (0-0.5); Lymphocytes Absolute Auto 0.69 K/mm3 (0.9-3.2); Lymphocytes Percent Auto 3.7 % (18.3-44.2); Mean Corpuscular HGB Conc 32.8 g/dl (32-36); Mean Corpuscular Volume 88.4 fl (80-100); Mean Platelet Volume 11.1 fl (7.4-10.4); Monocytes Percent Auto 21.6 % (2.6-8.5); Neutrophils Absolute Auto 13.6 K/mm3 (1.3-6.7); Neutrophils Percent Auto 73.9 % (45.5-73.1); Platelet Count Result 226 k/mm3 (150-375); Red Blood Count 3.79 M/mm3 (4.2-5.4); Red Cell Distribution Width 14.5 % (11.5-14.5); White Blood Count 18.4 K/mm3 (4.5-10.0)
[2022-11-10 05:13] LABS: Sodium 136 mmol/L (137-145)
[2022-11-10 05:34] LABS: Anion Gap 6 mmol/L (8-16); Blood Urea Nitrogen 20 mg/dL (7-17); Calcium 8.1 mg/dL (8.4-10.2); Carbon Dioxide 26 mmol/L (22-30); Chloride 104 mmol/L (98-107); Estimated CRCL calculation 65 ml/min; Estimated Glomerular Filt Rate > 60; Glucose 153 mg/dL (65-110); Potassium 4.9 mmol/L (3.4-5.0)
[2022-11-10] MEDS: LEVOTHYROXINE SODIUM 88 MCG TABLET PO (05:50)
[2022-11-10 06:41] VITALS: BP 101/52; PULSE 63; RESP 18; TEMP 36.7; O2SAT 96
[2022-11-10] MEDS: FLUTICASONE/SALMETEROL 115-21 MCG INHALER 1 PUFF 2 PUFF INHALATION (08:22)
[2022-11-10 09:52] VITALS: PULSE 77
[2022-11-10] MEDS: APIXABAN 5 MG TABLET PO (09:52)
[2022-11-10] MEDS: ATORVASTATIN 40 MG TABLET 80 MG PO (09:52)
[2022-11-10] MEDS: METOPROLOL TARTRATE 25 MG TABLET PO (09:52)
[2022-11-10] MEDS: SPIRONOLACTONE 25 MG TABLET PO (09:53)
[2022-11-10] MEDS: dilTIAZem HCL 60 MG TABLET PO (09:53)
[2022-11-10] MEDS: LOSARTAN POTASSIUM 100 MG TABLET PO (09:53)
[2022-11-10] MEDS: MAGNESIUM OXIDE 400 MG TABLET PO (09:54)
[2022-11-10] MEDS: FAMOTIDINE 20 MG TABLET 40 MG PO (09:54)
[2022-11-10] MEDS: SENNA/DOCUSATE SODIUM TABLET 2 TAB PO (10:10)
[2022-11-10] MEDS: polyethylene glycoL 3350 17 GM POWD.PACK PO (10:11)
--- NOTE | 2022-11-10 10:30 | P.PNAN_ITS ---
Anes - Prog Note Post-Op Date/Time: 11/10/22 10:30 Cardiovascular status: normal Respiratory status: normal Airway patency: baseline Mental status: baseline Post-Op hydration status: normal Vital Signs: Last Vital Signs Temp 36.7 C 11/10/22 06:41 Pulse 77 11/10/22 09:52 Resp 18 11/10/22 06:41 BP 101/52 L 11/10/22 06:41 Pulse Ox 96 11/10/22 06:41 O2 Del Method Room Air 11/10/22 08:56 O2 Flow Rate 8 11/09/22 16:15 Pain Score (VAS): 11/22 I/O: Intake & Output 11/09/22 11/10/22 11/10/22 23:59 07:59 15:59 Intake Total 1012 620 Output Total 800 Balance 1012 -180 Laboratory Tests 11/10/22 04:38 11/10/22 04:38 11/09/22 11/10/22 11/10/22 10:38 04:38 04:38 WBC 18.4 H RBC 3.79 L Hgb 11.0 L Hct 33.5 L MCV 88.4 MCH 29.0 MCHC 32.8 RDW 14.5 Plt Count 226 MPV 11.1 H Immature Gran % (Auto) 0.4 Neut % (Auto) 73.9 H Lymph % (Auto) 3.7 L [place] % (Auto) 21.6 H Eos % (Auto) 0.2 Baso % (Auto) 0.2 Lymph # (Auto) 0.69 L [place] # (Auto) 4.0 H Eos # (Auto) 0.0 Baso # (Auto) 0.0 Abs Immat Gran (auto) 0.08 H Absolute Neuts (auto) 13.6 H Absolute Nucleated RBC 0.0 Nucleated RBC % 0.0 PT 14.1 INR 1.1 APTT 30.6 Sodium 136 L Potassium 4.9 Chloride 104 Carbon Dioxide 26 Anion Gap 6 L BUN 20 H Creatinine 0.80 Estim Creat Clear Calc 65 Estimated GFR > 60 Glucose 153 H Calcium 8.1 L Post-procedural complaints: nausea (Resolved this morning ) Patient Feedback: Patient satisfied with anesthetic care.
--- NOTE | 2022-11-10 12:18 | PM.PNORT ---
Progress Note: A&P Assessment and Plan (1) S/P total hip arthroplasty: Qualifiers: Laterality: left Qualified Code(s): Z96.642 - Presence of left artificial hip joint Code(s): Z96.649 - Presence of unspecified artificial hip joint Status: Acute Assessment and Plan: POD 1 DOING WELL. OK TO DC HOME F/U ION 3 WEEKS. Subjective Subjective Date/Time Seen: 11/10/22 12:18 POD 1 DOING WELL. GOOD PROGRESS WITH PT. NO CALF PAIN Exam Extrem: Other: VSS AFEBRILE DRESSING DRY NV INTACT NEG HOMANS SIGN, THIGH AND CALF SOFT Objective Data Vital Signs Vital Signs: Vital Signs - 24 hr 11/09/22 15:32 11/09/22 15:45 11/09/22 16:00 Temperature 36.6 C Pulse Rate 72 60 60 Respiratory Rate 10 L 14 18 Blood Pressure 147/76 H 134/74 140/96 H Pulse Oximetry 100 100 100 Oxygen Delivery Simple Face Mask Simple Face Mask Simple Face Mask Oxygen Flow Rate 8 8 8 11/09/22 16:15 11/09/22 16:18 11/09/22 16:30 Temperature Pulse Rate 60 55 L Respiratory Rate 14 12 Blood Pressure 149/80 H 134/73 Pulse Oximetry 100 97 96 Oxygen Delivery Simple Face Mask Room Air Room Air Oxygen Flow Rate 8 11/09/22 16:45 11/09/22 16:55 11/09/22 17:30 Temperature 36.4 C Pulse Rate 63 59 L 54 L Respiratory Rate 18 16 16 Blood Pressure 134/71 137/92 H 109/48 L Pulse Oximetry 100 96 95 Oxygen Delivery Room Air Room Air Oxygen Flow Rate 11/09/22 17:45 11/09/22 18:15 11/09/22 17:45 Temperature 36.4 C 36.4 C Pulse Rate 53 L 55 L Respiratory Rate 16 15 Blood Pressure 100/37 L 100/50 L Pulse Oximetry 95 94 Oxygen Delivery Room Air Oxygen Flow Rate 11/09/22 20:15 11/09/22 20:00 11/10/22 02:36 Temperature 36.3 C L 36.3 C L Pulse Rate 56 L 65 Respiratory Rate 18 18 Blood Pressure 143/64 H 109/60 Pulse Oximetry 98 97 Oxygen Delivery Room Air Oxygen Flow Rate 11/10/22 06:41 11/10/22 08:56 11/10/22 09:52 Temperature 36.7 C Pulse Rate 63 77 Respiratory Rate 18 Blood Pressure 101/52 L Pulse Oximetry 96 Oxygen Delivery Room Air Oxygen Flow Rate Intake/Output Intake/Output: Intake & Output 11/07/22 11/08/22 11/09/22 11/10/22 23:59 23:59 23:59 23:59 Intake Total 1162 860 Output Total 800 Balance 1162 60 Meds/Results Medications: Active Medications Generic Name Dose Route Start Last Admin Trade Name Freq PRN Reason Stop Dose Admin Acetaminophen 650 mg 11/09/22 16:56 Acetaminophen 325 Mg Tablet PO Q6H PRN Mild Pain (1-3) or Fever Hydrocodone Bitart/Acetaminophen 1 tab 11/09/22 16:56 11/10/22 10:06 Hydrocodone/Acetaminophen (*Crx) 7.5-325 Mg Tablet PO 1 tab Q3H PRN Administration Pain Rated 4-6 Albuterol 1 puff 11/09/22 16:56 Albuterol Sulfate (*Sp) Aerosol 1 Puff INHALATION Q4-6H PRN Dyspnea Apixaban 5 mg 11/10/22 09:00 11/10/22 09:52 Apixaban 5 Mg Tablet PO 5 mg BID KATIANA Administration Atorvastatin Calcium 80 mg 11/10/22 09:00 11/10/22 09:52 Atorvastatin 40 Mg Tablet PO 80 mg DAILY KATIANA Administration Diazepam 5 mg 11/09/22 16:56 Diazepam (*Crx) 5 Mg Tablet PO Q6H PRN Anxiety/Muscle Spasm Diltiazem HCl 60 mg 11/09/22 17:00 11/10/22 09:53 Diltiazem Hcl 60 Mg Tablet PO 60 mg BID KATIANA Administration Famotidine 40 mg 11/09/22 17:00 11/10/22 09:54 Famotidine 20 Mg Tablet PO 40 mg BID KATIANA Administration Hydroxyzine HCl 50 mg 11/09/22 16:56 Hydroxyzine Hcl 25 Mg Tablet PO Q4H PRN Itching Cefazolin Sodium 2 gm in 50 mls @ 100 mls/hr 11/09/22 20:00 11/10/22 11:36 Ancef 2 Gm/D5w 50 Ml IVPB 11/10/22 12:29 100 mls/hr Q8H KATIANA Administration Ketorolac Tromethamine 15 mg 11/09/22 18:00 11/10/22 11:35 Ketorolac 15 Mg/Ml Vial (*Bkc) IV PUSH 11/10/22 18:01 15 mg Q6HR KATIANA Administration Levothyroxine Sodium 88 mcg 11/10/22 06:30 11/10/22 05:50 Levothyroxine Sodium 88 Mcg Tablet PO 8
--- NOTE | 2022-11-10 12:21 | PM.DS ---
DS: Admitting Diagnosis Discharge Date 11/10/22 Admitting Diagnosis RIGHT HIP DJD DS: Discharge Diagnosis Discharge Diagnosis (1) Degenerative joint disease (DJD) of hip: Qualifiers: Osteoarthritis type: primary Laterality: right Qualified Code(s): M16.11 - Unilateral primary osteoarthritis, right hip Code(s): M16.9 - Osteoarthritis of hip, unspecified Status: Acute DS: Summary Hospital Course Reason for hospitalization: R LUC Hospital Course: PATIENT WAS ADMITTED S/P TOTAL HIP ARTHROPLASTY FOR POSTOPERATIVE MEDICAL MANAGEMENT, PAIN CONTROL AND MOBILIZATION WITH PHYSICAL AND OCCUPATIONAL THERAPY. THE PATIENT PROGRESSED WELL WITH PT/OT. LABS AND VITALS REMAINED STABLE AND PAIN WELL CONTROLLED. THE PATIENT HAS BEEN CLEARED TO BE DISCHARGED HOME. FOLLOW UP APPOINTMENT SCHEDULED. DISCHARGE INSTRUCTIONS DISCUSSED AT LENGTH WITH THE PATIENT. MEDICATIONS REVIEWED. Status at Discharge Cognitive/behavioral status at discharge: STABLE Overall status at discharge: patient is progressing back to baseline Time Spent with Patient Time attestation: Total time spent providing and/or coordinating discharge services: DS: Data Data Completed and Pending Labs on day of discharge: Labs from last 24 hours 11/10/22 11/10/22 04:38 04:38 WBC 18.4 H RBC 3.79 L Hgb 11.0 L Hct 33.5 L MCV 88.4 MCH 29.0 MCHC 32.8 RDW 14.5 Plt Count 226 MPV 11.1 H Immature Gran % (Auto) 0.4 Neut % (Auto) 73.9 H Lymph % (Auto) 3.7 L [place] % (Auto) 21.6 H Eos % (Auto) 0.2 Baso % (Auto) 0.2 Lymph # (Auto) 0.69 L [place] # (Auto) 4.0 H Eos # (Auto) 0.0 Baso # (Auto) 0.0 Abs Immat Gran (auto) 0.08 H Absolute Neuts (auto) 13.6 H Absolute Nucleated RBC 0.0 Nucleated RBC % 0.0 Sodium 136 L Potassium 4.9 Chloride 104 Carbon Dioxide 26 Anion Gap 6 L BUN 20 H Creatinine 0.80 Estim Creat Clear Calc 65 Estimated GFR > 60 Glucose 153 H Calcium 8.1 L Procedures/Treatments: 0R LUC Discharge Plan Discharge Patient Disposition: Home, Self-Care Discharge Instructions: MAYI LIU M.D. [facility] [address] [place] [address] POST OPERATIVE DISCHARGE INSTRUCTIONS FOLLOWING TOTAL HIP REPLACEMENT SURGERY ? Your dressing will be changed prior to your discharge. You will be sent home with one additional dressing to be changed on post op day 7 by the home health RN. You may remove the dressing on post op day 14. Your incision was closed with dermabond, allow the dermabond to fall off naturally once your dressing is removed. Do not pull at the dermabond or disrupt incision healing. ? You may shower with your dressing but do not submerge in a bath tub. ? Do not drive or operate machinery until you are released by Dr. Liu. ? Do not walk without a walker for any reason until you are released by Dr. Liu. ? Continue to apply ice to the hip intermittently for additional pain relief. Protect your skin with a towel or pillow case. ? Unless otherwise instructed by Dr. Liu you me be weight bearing as tolerated with your walker. ? Continue to follow strict total hip replacement precautions. ? Your first post op appointment was sent to you via mail preoperatively. If you have any questions or are unable to make your appointment, please contact our office for scheduling questions. ? Your medications have been sent to your pharmacy. You have been sent home with pain medication. We have also sent you with a stool softener as narcotics can cause constipation. Please keep this in mind during your postoperative recovery. If you are not experiencing regular bowel movements, please contact our office for further instruction. ? Please contact our office with any questions regarding your hip at [phone]. Patient Instructions: Safe Use of Anticoagulants (GEN) Follow-
--- NOTE | 2022-11-10 13:03 | PC.NURSE ---
On 11/10/22, the student, [Abigail Abbott], provided care and completed [facility] documentation on this patient. I have reviewed the student's documentation and agree with the findings.
[2022-11-10 14:01] VITALS: BP 106/59; PULSE 65; RESP 16; TEMP 36.6; O2SAT 98
== END 2022-11-10 15:30 | disposition home or self-care (01) ==
LOC: ANHSURGERY 09:48 → ANH2MED 17:01
PROVIDERS: PCP Internal Medicine; Visit Provider Orthopaedic Surgery
PROC: (CPT 27130; principal; 2022-11-09 12:00)
DX: M16.11 Unilateral primary osteoarthritis, right hip (principal); E03.9 Hypothyroidism, unspecified; I10 Essential (primary) hypertension; F41.9 Anxiety disorder, unspecified; Z98.84 Bariatric surgery status; E66.9 Obesity, unspecified; Z68.35 Body mass index [BMI] 35.0-35.9, adult; Z79.51 Long term (current) use of inhaled steroids; Z79.01 Long term (current) use of anticoagulants
CPT/HCPCS: 27130; 36415; 73502; 80048; 85025; 85610; 85730; 97110; 97116; 97161; 97165; 97530; 97535; A9270; C1713; C1776; J0171; J0690; J1100; J1170; J1885; J2250; J2405; J2704; J2710; J2795; J3010; J7120

== ENCOUNTER 2024-01-24 12:09 | Outpatient (CLI) | payer MEDICARE, SELFPAY ==
--- NOTE | ~2024-01-24 | MM_ITS ---
EXAMINATION: MM screening eitan BI w juan diego HISTORY: Screening TECHNIQUE: Craniocaudal and mediolateral oblique 3-D tomosynthesis images were obtained and synthetic 2-D images were generated. CAD analysis was submitted and interpreted. COMPARISON: Comparison to multiple prior studies sequentially, with oldest reviewed study dated 08/30. BREAST PARENCHYMAL COMPOSITION: Not dense: There are scattered areas of fibroglandular density. FINDINGS: There is no evidence of suspicious mass, calcification, or architectural distortion to sugg est malignancy in either breast. There has been no suspicious interval change. IMPRESSION: 1. No mammographic evidence of malignancy. 2. Recommend routine screening mammography in one year. BI-RADS Category 1: Negative Reviewed, dictated and finalized at location B.
== END 2024-01-24 12:10 ==
LOC: MICIMG 12:13
PROVIDERS: PCP Internal Medicine; Visit Provider Internal Medicine
DX: Z12.31 Encounter for screening mammogram for malignant neoplasm of breast (principal)
CPT/HCPCS: 77063; 77067

== ENCOUNTER 2025-04-25 22:45 | Emergency (ER) | payer MEDICARE, SELFPAY ==
--- NOTE | ~2025-04-25 | CT_ITS ---
Zara Love EXAMINATION: CT abdomen pelvis w con COMPARISON: None HISTORY: right flank pain, abdominal pain TECHNIQUE: Axial images were obtained through the abdomen, pelvis post administration of IV contrast. Oral contrast was also administered. Coronal reconstruction images were obtained from the axial views. CT scan performed using dose optimization techniques including the following automated exposure control; adjustment of mA and/or kV; use of iterative reconstruction technique. Automatic exposure control was used to reduce radiation dose. Permanent radiation dose record is archived to PACS. FINDINGS: CT abdomen: LUNG BASES: The lung bases demonstrate bibasilar areas of atelectasis. LIVER: Mild hepatic steatosis. Minimal intrahepatic biliary duct dilatation. Portal vein is patent. SPLEEN: Unremarkable. KIDNEYS: Right Kidney: Unremarkable. No calculi. No hydronephrosis. Left Kidney: Left kidney midpole simple cyst 1 x 1 cm. ADRENAL GLANDS: Unremarkable. PANCREAS: Unremarkable. GALLBLADDER/BILIARY: Post cholecystectomy. STOMACH AND ESOPHAGUS: Postsurgical changes in the stomach. The stomach appears decompressed. BOWEL/MESENTERY: Duodenal diverticulum 3 x 2 cm. Moderate fecal content. Moderate diverticulosis. Minimal thickening of the ascending colon, no diverticulitis. Appendix normal. Mesentery normal. No dilated small bowel loops. ADENOPATHY/RETROPERITONEUM: No lymphadenopathy. AORTA/VASCULATURE: Normal caliber aorta. FREE FLUID OR FREE AIR: No free fluid.. CT pelvis: SOLID ORGANS/REPRODUCTIVE: Uterus atrophic. No adnexal mass. BLADDER: Artifact limits evaluation of the bladder. OSSEOUS STRUCTURES: Bilateral hip arthroplasties. No sclerotic or lytic lesions. OVERLYING SOFT TISSUES: Mild diastases of the abdominal wall. IMPRESSION: Mild colitis. No perforation or abscess. Incidental findings above Reviewed, dictated and finalized at location A.
[2025-04-25 22:50] VITALS: BP 177/124; PULSE 76; RESP 18; TEMP 36.6; O2SAT 99
--- NOTE | 2025-04-26 01:31 | ED.EXTPRO ---
HPI - Extremity Problem General Chief complaint: Extremity Problem,Nontraumatic <Catina Alejandre PA-C - Last Filed: 04/26/25 17:27> Stated complaint: pain in right side, flank pain <Catina Alejandre PA-C - Last Filed: 04/26/25 17:27> Time Seen by Provider: 04/26/25 01:18 <Catina Alejandre PA-C - Last Filed: 04/26/25 17:27> Source: patient <Catina Alejandre PA-C - Last Filed: 04/26/25 17:27> Mode of arrival: ambulatory <DON Ferrari Last Filed: 04/26/25 17:27> Limitations: no limitations <Ctaina Alejandre PA-C - Last Filed: 04/26/25 17:27> History of Present Illness HPI Narrative: This is a 69-year-old female that presents to the emergency department for right flank pain. Ongoing over the last week. Reports now the pain is radiating to her abdomen. Reports some nausea. Denies fevers, vomiting, dysuria, hematuria. <Catina Alejandre PA-C - Last Filed: 04/26/25 17:27> Related Data Home medications: Home Medications ?Medication ?Instructions ?Recorded ?Confirmed ?Last Taken ?Type levothyroxine 88 mcg tablet 88 mcg PO QAM 06/10/21 01/02/24 11/09/22 History naproxen sodium 220 mg capsule 220 mg PO BID PRN Pain 06/10/21 01/02/24 11/04/22 History (Aleve) albuterol sulfate 90 mcg/actuation 1 inh inhalation Q4-6H PRN Dyspnea 10/29/22 01/02/24 Unknown History aerosol inhaler apixaban 5 mg tablet (Eliquis) 5 mg PO BID 10/29/22 01/02/24 11/03/22 History atorvastatin 80 mg tablet 80 mg PO DAILY 10/29/22 01/02/24 11/08/22 History diltiazem HCl 60 mg tablet 60 mg PO BID 10/29/22 01/02/24 11/09/22 History famotidine 40 mg tablet 40 mg PO BID 10/29/22 01/02/24 11/09/22 History fluticasone furoate 100 1 inh inhalation QPM 10/29/22 01/02/24 11/06/22 History mcg-vilanterol 25 mcg/dose inhalation powder (Breo Ellipta) lorazepam 0.5 mg tablet 0.5 mg PO HS 10/29/22 01/02/24 11/08/22 History losartan 100 mg tablet 100 mg PO QAM 10/29/22 01/02/24 11/08/22 History magnesium oxide 400 mg (241.3 mg 400 mg PO BID 10/29/22 01/02/24 11/05/22 History magnesium) tablet metoprolol tartrate 50 mg tablet 25 mg PO BID 10/29/22 01/02/24 11/09/22 History spironolactone 25 mg tablet 25 mg PO QAM 10/29/22 01/02/24 11/08/22 History <Catina Alejandre PA-C - Last Filed: 04/26/25 17:27> Allergies/Adverse reactions: Allergies Allergy/AdvReac Type Severity Reaction Status Date / Time codeine Allergy Unknown Nausea,gastric Verified 04/25/25 22:54 distress,Nausea,gastric distress <Catina Alejandre PA-C - Last Filed: 04/26/25 17:27> Review of Systems Review of Systems: All systems reviewed & are unremarkable except as noted in HPI and below <Catina Alejandre PA-C - Last Filed: 04/26/25 17:27> [facility] Past Medical History Medical History: Medical History Anxiety Arthritis Degenerative joint disease of left hip HTN (hypertension) Hypothyroidism Obesity Postoperative stitch abscess Right knee DJD <Catina Alejandre PA-C - Last Filed: 04/26/25 17:27> Surgical History Surgical History: Surgical History History of History of cholecystectomy History of sleeve gastrectomy 2015 History of tonsillectomy History of tubal ligation S/P total hip arthroplasty LT LUC 2019 RT LUC 10/2022 S/P total knee arthroplasty <DON Ferrari Last Filed: 04/26/25 17:27> Family History Family History: Family History Other Diabetes mellitus Family history of coronary artery disease Family history of malignant neoplasm Hypertension <Catina Alejandre PA-C - Last Filed: 04/26/25 17:27> Social History Social History: Social History Smoking status: Never smoker Second hand tobacco smoke exposure: Yes (IN THE PAST) Additional smoking assessment comments: DENIES ANY FORM OF TOBACCO USE Alcohol intake: former Drinks per week: 1 Alcohol use details: BEER Substance use: never Substance use type: does not use Lack of Transportation: No Lack of Food: Never True Current Housing: I Have Housing Concerned About Future Housing: No Difficulty Paying Gas/Electric Bills: No Difficulty Paying for Meds: No Currently Unemployed: No Education: High School Diploma/GED Difficulty w/ Childcare or Family Care: No Living arrangements: with family Additional living arrangements comments: [facility] Spiritual care concerns: No <Catina Alejandre PA-C - Last Filed: 04/26/25 17:27> Exam Narrative: GENERAL: Well-appearing, well-nourished, and in no acute distress. HEAD: Normocephalic, atraumatic. EYES: EOMI. CHEST: Clear to auscultation. No respiratory distress. No wheezes rales or rhonchi HEART: Regular rate and rhythm. No murmur heard. Normal peripheral pulses. ABDOMEN: Soft, nontender, nondistended, normal active bowel sounds. EXTREMITIES: Normal range of motion. No edema. SKIN: Warm, dry, no rash. NEURO: No focal deficits. Alert and oriented x3. PSYCH: Normal mood and affect <Catina Alejandre PA-C - Last Filed: 04/26/25 17:27> Course Course Emergency Course: ZYCH: Patient signed out pending CT scan. CT showed right-sided colitis. On re-evaluation patient is resting comfortably in bed with stable vitals. Abdominal exam is benign. Pain is controlled. No fevers. No bloody diarrhea. White count equivocal. Patient well appearing overall. We will hold off on antibiotics. Patient will follow-up with her primary care physician at her scheduled appointment early next week. Given return precautions for fevers, severe abdominal pain, worsening condition or bloody diarrhea. <Catina Alejandre PA-C - Last Filed: 04/26/25 17:27> KARI: Patient signed out pending CT scan. CT showed right-sided colitis. On re-evaluation patient is resting comfortably in bed with stable vitals. Abdominal exam is benign. Pain is controlled. No fevers. No bloody diarrhea. White count equivocal. Patient well appearing overall. We will hold off on antibiotics. Patient will follow-up with her primary care physician at her scheduled appointment early next week. Given return precautions for fevers, severe abdominal pain worsening condition or bloody diarrhea. <Jimenez Reyna MD - Last Filed: 04/26/25 06:36> Vital Signs Vital signs: Vital Signs Temperature 98 F 04/25/25 22:50 Pulse Rate 76 04/25/25 22:50 Respiratory Rate 18 04/25/25 22:50 Blood Pressure 177/124 H 04/25/25 22:50 Pulse Oximetry 99 04/25/25 22:50 Oxygen Delivery Room Air 04/25/25 22:50 Temperature 97.8 F 04/26/25 01:56 Pulse Rate 72 04/26/25 06:25 Respiratory Rate 15 04/26/25 06:25 Blood Pressure 133/66 04/26/25 06:25 Pulse Oximetry 96 04/26/25 06:25 Oxygen Delivery Room Air 04/26/25 01:56 <Catina Alejandre PA-C - Last Filed: 04/26/25 17:27> Vital Signs Temperature 98 F 04/25/25 22:50 Pulse Rate 76 04/25/25 22:50 Respiratory Rate 18 04/25/25 22:50 Blood Pressure 177/124 H 04/25/25 22:50 Pulse Oximetry 99 04/25/25 22:50 Oxygen Delivery Room Air 04/25/25 22:50 Temperature 97.8 F 04/26/25 01:56 Pulse Rate 72 04/26/25 06:25 Respiratory Rate 15 04/26/25 06:25 Blood Pressure 133/66 04/26/25 06:25 Pulse Oximetry 96 04/26/25 06:25 Oxygen Delivery Room Air 04/26/25 01:56 <Jimenez Reyna MD - Last Filed: 04/26/25 06:36> MDM - Extremity (Nontraumatic) MDM Narrative Medical decision making narrative: Patient presents to the ER for right sided abdominal/flank pain. Ongoing over the last week. She is afebrile and nontoxic appearing. Hypertensive upon arrival. This normalized with management of pain. CBC with leukocytosis to 12.1. Metabolic panel without concerning findings. Urine without evidence of infection. CT abdomen and pelvis obtained for further evaluation. Care taken over by Dr. Reyna pending CT results <Catina Alejandre PA-C - Last Filed: 04/26/25 17:27> Differential Diagnosis Differential diagnosis: Likely other (Kidney stone, appendicitis, UTI, muscle strain, lumbar radiculopathy, colitis) <Catina Alejandre PA-C - Last Filed: 04/26/25 17:27> Lab Data Attestation: I reviewed the patient's lab results. <Catina Alejandre PA-C - Last Filed: 04/26/25 17:27> Result diagrams: 04/26/25 01:43 04/26/25 02:47 <Catina Alejandre PA-C - Last Filed: 04/26/25 17:27> Labs: Lab Results 04/26/25 04/26/25 Range/Units 01:43 02:47 WBC 12.1 H (4.5-10.0) K/mm3 RBC 4.97 (4.2-5.4) M/mm3 Hgb 14.2 D (12.0-15.0) g/dL Hct 44.6 (37.0-47.0) % MCV 89.7 (80-100) fl MCH 28.6 (26-34) pg MCHC 31.8 L (32-36) g/dl RDW 12.7 (11.5-14.5) % Plt Count 292 (150-375) k/mm3 MPV 11.2 H (7.4-10.4) fl Immature Gran % (Auto) 0.3 (0-0.5) % Neut % (Auto) 62.5 (45.5-73.1) % Lymph % (Auto) 15.1 L (18.3-44.2) % Esmeralda % (Auto) 17.9 H (2.6-8.5) % Eos % (Auto) 3.1 (0-4.4) % Baso % (Auto) 1.1 (0.2-1.2) % Lymph # (Auto) 1.82 (0.9-3.2) K/mm3 Esmeralda # (Auto) 2.2 H (0.1-0.6) K/mm3 Eos # (Auto) 0.4 H (0-0.3) K/mm3 Baso # (Auto) 0.1 (0.0-0.1) K/mm3 Abs Immat Gran (auto) 0.04 H (0.00-0.031) K/mm3 Absolute Neuts (auto) 7.6 H (1.3-6.7) K/mm3 Absolute Nucleated RBC 0.000 (0.0-0.012) K/mm3 Nucleated RBC % 0.0 (0.0-0.2) % Sodium 138 (137-145) mmol/L Potassium 4.2 (3.4-5.0) mmol/L Chloride 104 (98-107) mmol/L Carbon Dioxide 26 (22-30) mmol/L Anion Gap 8 (4-12) mmol/L BUN 18 H (7-17) mg/dL Creatinine 0.81 (0.7-1.0) mg/dL Estim Creat Clear Calc 65 ml/min Estimated GFR > 60 (59 - ) Glucose 112 H (65-110) mg/dL Calcium 9.2 (8.4-10.2) mg/dL Total Bilirubin 0.5 (0.2-1.3) mg/dL AST 28 (14-36) U/L ALT 25 (6-35) U/L Alkaline Phosphatase 89 (38-126) U/L Total Protein 7.6 (6.3-8.2) g/dL Albumin 4.1 (3.5-5.1) g/dL Lipase 128 (23-300) U/L Urine Color Yellow (Yellow) Urine Appearance Clear (Clear) Urine pH 6.0 (5.0-9.0) Ur Specific [place] 1.011 (1.001-1.035) Urine Protein Negative (Negative) mg/dL Urine Glucose (UA) Negative (Negative) mg/dL Urine Ketones Negative (Negative) mg/dL Ur Blood (Man) Trace (Negative) Urine Nitrate Negative (Negative) Urine Bilirubin Negative (Negative) Urine Urobilinogen 0.2 (<2.0) mg/dL Leukocyte Esterase Rfl Negative (Negative) DHARMESH/UL Urine RBC 0-2 (0-2) /hpf Urine WBC 0-5 (0-3) /hpf Ur Squamous Epith Cells None seen (Few) /hpf Urine Bacteria None seen /hpf Urine Casts 0-2 <Catina Alejandre PA-C - Last Filed: 04/26/25 17:27> Lab Results 04/26/25 04/26/25 Range/Units 01:43 02:47 WBC 12.1 H (4.5-10.0) K/mm3 RBC 4.97 (4.2-5.4) M/mm3 Hgb 14.2 D (12.0-15.0) g/dL Hct 44.6 (37.0-47.0) % MCV 89.7 (80-100) fl MCH 28.6 (26-34) pg MCHC 31.8 L (32-36) g/dl RDW 12.7 (11.5-14.5) % Plt Count 292 (150-375) k/mm3 MPV 11.2 H (7.4-10.4) fl Immature Gran % (Auto) 0.3 (0-0.5) % Neut % (Auto) 62.5 (45.5-73.1) % Lymph % (Auto) 15.1 L (18.3-44.2) % Esmeralda % (Auto) 17.9 H (2.6-8.5) % Eos % (Auto) 3.1 (0-4.4) % Baso % (Auto) 1.1 (0.2-1.2) % Lymph # (Auto) 1.82 (0.9-3.2) K/mm3 Esmeralda # (Auto) 2.2 H (0.1-0.6) K/mm3 Eos # (Auto) 0.4 H (0-0.3) K/mm3 Baso # (Auto) 0.1 (0.0-0.1) K/mm3 Abs Immat Gran (auto) 0.04 H (0.00-0.031) K/mm3 Absolute Neuts (auto) 7.6 H (1.3-6.7) K/mm3 Absolute Nucleated RBC 0.000 (0.0-0.012) K/mm3 Nucleated RBC % 0.0 (0.0-0.2) % Sodium 138 (137-145) mmol/L Potassium 4.2 (3.4-5.0) mmol/L Chloride 104 (98-107) mmol/L Carbon Dioxide 26 (22-30) mmol/L Anion Gap 8 (4-12) mmol/L BUN 18 H (7-17) mg/dL Creatinine 0.81 (0.7-1.0) mg/dL Estim Creat Clear Calc 65 ml/min Estimated GFR > 60 (59 - ) Glucose 112 H (65-110) mg/dL Calcium 9.2 (8.4-10.2) mg/dL Total Bilirubin 0.5 (0.2-1.3) mg/dL AST 28 (14-36) U/L ALT 25 (6-35) U/L Alkaline Phosphatase 89 (38-126) U/L Total Protein 7.6 (6.3-8.2) g/dL Albumin 4.1 (3.5-5.1) g/dL Lipase 128 (23-300) U/L Urine Color Yellow (Yellow) Urine Appearance Clear (Clear) Urine pH 6.0 (5.0-9.0) Ur Specific [place] 1.011 (1.001-1.035) Urine Protein Negative (Negative) mg/dL Urine Glucose (UA) Negative (Negative) mg/dL Urine Ketones Negative (Negative) mg/dL Ur Blood (Man) Trace (Negative) Urine Nitrate Negative (Negative) Urine Bilirubin Negative (Negative) Urine Urobilinogen 0.2 (<2.0) mg/dL Leukocyte Esterase Rfl Negative (Negative) DHARMESH/UL Urine RBC 0-2 (0-2) /hpf Urine WBC 0-5 (0-3) /hpf Ur Squamous Epith Cells None seen (Few) /hpf Urine Bacteria None seen /hpf Urine Casts 0-2 <Jimenez Reyna MD - Last Filed: 04/26/25 06:36> Imaging Data Radiologist's impression: ITS Impressions Abdomen/Pelvis CT 04/26/25 09:18 IMPRESSION: Mild colitis. No perforation or abscess. Incidental findings above <Catina L. Alejandre, PA-C - Last Filed: 04/26/25 17:27> Critical Care Time Critical Care Time Critical Care Time: No <DON Ferrari Last Filed: 04/26/25 17:27> Discharge Plan Discharge Clinical Impression: Right lower quadrant abdominal pain, Colitis <DON Ferrari Last Filed: 04/26/25 17:27> Patient Disposition: Home <DON Ferrari Last Filed: 04/26/25 17:27> Condition: Stable <DON Ferrari Last Filed: 04/26/25 17:27> Instructions: Colitis (ED) <DON Ferrari Last Filed: 04/26/25 17:27> Additional Instructions: Return to the ER if you experience fever, abdominal pain with nausea and vomiting, you are unable to keep down liquids or solids, blood in the stool, pain or burning with urination, blood in the urine or any other symptoms that are concerning to you Remain well hydrated. Tylenol or Ibuprofen as needed for pain. Ondansetron as needed for nausea Follow up with primary care doctor <DON Ferrari Last Filed: 04/26/25 17:27> Patient Language: Slovenian <DON Ferrari Last Filed: 04/26/25 17:27> Prescriptions: New ondansetron 4 mg tablet,disintegrating 4 mg PO Q8H PRN (Reason: nausea and vomiting) Qty: 10 0RF acetaminophen 500 mg tablet 1,000 mg PO TID PRN (Reason: octavia) 7 Days Qty: 42 0RF oxycodone 5 mg tablet 5 mg PO Q4H PRN (Reason: pain) Qty: 7 0RF No Action levothyroxine 88 mcg tablet 88 mcg PO QAM naproxen sodium [Aleve] 220 mg Capsule 220 mg PO BID PRN (Reason: Pain) losartan 100 mg tablet 100 mg PO QAM atorvastatin 80 mg tablet 80 mg PO DAILY famotidine 40 mg tablet 40 mg PO BID spironolactone 25 mg tablet 25 mg PO QAM magnesium oxide 400 mg (241.3 mg magnesium) tablet 400 mg PO BID lorazepam 0.5 mg tablet 0.5 mg PO HS metoprolol tartrate 50 mg tablet 25 mg PO BID albuterol sulfate 90 mcg/actuation HFA aerosol inhaler 1 inh INHALATION Q4-6H PRN (Reason: Dyspnea) diltiazem HCl 60 mg tablet 60 mg PO BID Eliquis 5 mg tablet 5 mg PO BID fluticasone furoate-vilanterol [Breo Ellipta] 100-25 mcg/dose blister with device 1 inh INHALATION QPM <Catina Alejandre PA-C - Last Filed: 04/26/25 17:27> Follow-up/Referrals: UNKNOWN,DOCTOR [Primary Care Provider] <Catina Alejandre PA-C - Last Filed: 04/26/25 17:27>
--- OUTSIDE RECORDS SUMMARY | 2025-04-26 01:43 | XMS_ITS | Clinical Summary ---
Author Organization [facility] [employer] Address [address] [place] [address] Care Team Providers Care Stereo Plotter Operator Name Role Phone Marija Ospina APRN-WET MACHINE OPERATOR Primary Care Provider Source Comments [facility] Affiliates and Associated Physician Practices is amultiple site organization consisting of ambulatory clinics and hospital sitesin [place], [place], [place] and [place]. This disclosure is being madepursuant to the Care Everywhere program and may not contain all information available regarding this patient. Last updated 18.[facility] [employer] Allergies Active Allergy Reactions Criticality Noted Date Comments Codeine Nausea and/or Vomiting 06/17/2014 Medications * Be aware that medications may not be up to date on this document. Alwaysverify current medications with the patient. citalopram (CELEXA) 10 MG tablet 1 Tab once daily. 4 Active LORazepam (ATIVAN) 1 MG tablet 1 Tab as needed. 4 Active losartan (COZAAR) 50 MG tablet Take 50 mg by mouth once daily 1 Active levothyroxine (SYNTHROID) 75 MCG tablet Take 75 mcg by mouth daily before breakfast 1 Active metoprolol tartrate IR (Lopressor) 50 MG tablet Take 0.5 (one-half) tablet by mouth 2 times daily 2 Active amiodarone (Cordarone) 200 MG tablet 2 Active apixaban (Eliquis) 5 MG tablet Take 1 (one) tablet by mouth 2 times daily 2 Active atorvastatin (Lipitor) 80 MG tablet Take 1 (one) tablet by mouth once daily 2 Active dilTIAZem (Cardizem) 60 MG tablet Take 1 (one) tablet by mouth 2 times daily 2 Active famotidine (Pepcid) 40 MG tablet Take 1 (one) tablet by mouth 2 times daily 2 Active levothyroxine (Synthroid) 88 MCG tablet Take 1 (one) tablet by mouth once daily 2 Active LORazepam (Ativan) 0.5 MG tablet Take 1 (one) tablet by mouth at bedtime 2 Active losartan (Cozaar) 100 MG tablet 2 Active Magnesium Oxide 400 MG Take 400 mg by mouth 2 times daily 2 Active Active Problems Problem Noted Date Diagnosed Date Atrial fibrillation 05/14/2022 Overview (08/27/2022): Added automatically from request for surgery [id number] Screening for other specific viral and chlamydia l diseases 05/14/2022 Deep vein thrombosis (DVT) 05/11/2022 Non-ST elevation (NSTEMI) myocardial infarction 05/11/2022 Actinic keratosis 12/13/2020 Actinic skin damage 12/12/2020 Inflamed seborrheic keratosis 12/12/2020 Essential hypertension 11/21/2020 Anxiety 11/21/2020 Hypothyroidism 11/21/2020 Melanocytic nevi of trunk 10/21/2017 HCV antibody positive 04/08/2017 Chronic bilateral thoracic back pain 07/06/2016 Macromastia 07/06/2016 Seborrheic keratoses 09/12/2015 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 (FLUBLOCK QUADRIVALENT; 18Y+) (RIV4) 05/20/2020 Social History Tobacco Use Types Packs/Day Years Used Date Smoking Tobacco: Never Smokeless Tobacco: Never Tobacco Cessation:Counseling Given: Not Answered Alcohol Use Standard Drinks/Week Comments Yes 0 (1 standard drink = 0.6 oz pur e alcohol) rarely Comments No Sex and Gender Information Value Date Recorded Sex Assigned at Not on file Legal Sex Female 2:53 PM CDT Gender Identity Not on file Sexual Orientation Not on file Last Filed Vital Signs Vital Sign Reading Time Taken Comments Blood Pressure 179/74 04/08/2017 11:00 AM CDT Pulse 63 04/08/2017 11:00 AM CDT Temperature 37.1 C (98.7 F) 07/06/2016 10:02 AM COLOR REPAIRER Respiratory Rate 12 04/08/2017 11:00 AM CDT Oxygen Saturation 97% 04/08/2017 11:00 AM CDT Inhaled Oxygen Concentration - - Weight 94 kg (207 lb 3.2 oz) 04/08/2017 11:00 AM CDT Height 167.6 cm (5' 6) 04/08/2017 11:00 AM CDT Body Mass Index 33.44 04/08/2017 11:00 AM CDT Plan of Treatment Upcoming Encounters Date Type Department Care Team (Late st Contact Info) Description 10/04/2025 10:20 AM COLOR REPAIRER Office Visit [facility] - Dermatology [address] [place] [address], [place] [address] Nayan Benson MD [address] [place] [address] [address] [place] [address] Health Maintenance Due Date Last Done Comments BONE DENSITY TESTING 1955 COLOGUARD (AGES 45-75) - COLON CA SCREENING 1955 CT COLONOGRAPHY - COLON CA SCREENING 1955 FIT - COLON CA SCREENING 1955 FLEX SIG - COLON CA SCREENING 1955 MAMMOGRAM 1955 MEDICARE AWV 12 MONTHS 1955 DTAP/TDAP/TD VACCINES (1 - Tdap) 1974 ZOSTER VACCINE (1 of 2) 2005 PNEUMOCOCCAL VACCINE 50+ (2 of 2 - PCV) 06/11/2017 06/11/2016 DIABETES RETINOPATHY SCREENING 07/25/2019 DIABETES-FOOT EXAM WITH MONOFILAMENT 07/25/2019 DIABETES-HGB A1C 07/25/2019 DIABETES-SERUM CREATININE 05/31/20232021, 11/21/2020, 04/08/2017, Additional history exists DEPRESSION SCREENING 08/15/2024 DIABETES - URINE PROTEIN SCREENING 08/15/2024 COVID-19 VACCINE (3 - season) 2025 10/28/2020, 10/07/2020 INFLUENZA VACCINE (#1) 2025 05/20/2020 Respiratory Syncytial Virus (RSV) Vaccine Pt: or over 60 yrs (1 - 1-dose 75+ series) 2030 COLON MONITORING 07/12/2033 07/12/2023 COLONOSCOPY - COLON CA SCREENING 07/12/2033 07/12/2023 Colorectal Cancer Screening 07/12/2033 HEPATITIS C SCREENING Completed 04/08/2017 HEPATITIS B VACCINE Aged Out No longe r eligible based on patient's age to complete this topic HIB VACCINE Aged Out No longer eligi ble based on patient's age to complete this topic HPV VACCINE Aged Out No longer eligi ble based on patient's age to complete this topic MENINGOCOCCAL (Group B) VACCINE SHARED DECISION-MAKING Aged Out No longer eligible based on patient's age to complete this topic MENINGOCOCCAL GROUPS A/C/Y/W VACCINE Aged Out No longer eligible based on patient's age to complete this topic Procedures Procedure Name Priority Date/Time Associated Diagnosis Comments COMPREHENSIVE METABOLIC PANEL Routine 04/08/2017 12:51 PM CDT HEPATITIS C RNA QUANTITATIVE Routine 04/08/2017 12:51 PM CDT from Last 3 Months or Most Recently Relevant to Health Maintenance Results * HEPATITIS C RNA QUANTITATIVE PCR (04/08/2017 12:51 PM CDT) Hepatitis C Virus RNA PCR Accession No: [id number] Specimen: Serum Reference: [id number] Test: Hepatitis C RT-PCR (Quantitative) RESULT Not Detected Reference Range Not Detected INTERPRETATION The quantitative Hepatitis C viral RNA RT-PCR determination was performed on a serum sample and is reported in IU/ml. Hepatitis C viral RNA was not detected. COMMENT The Hepatitis C viral (HCV) RNA analysis utilized a serum sample, real-time reverse marketing executive PCR, and is reported as Not Detected, Detected (<12 IU/ml), Quantity (IU/ml) or >100,000,000 IU/ml. The limit of quantiation of the assay is 12 IU/ml (100% of samples with this HCV RNA level were detected). The linear range is from 12 IU/ml to 100,000,000 IU/ml. Values less than 12 IU/ml are reported as Detected (<12 IU/ml). Values greater than 100,000,000 IU/ml are reported as >100,000,000 IU/ml. The detection/quantit ation of HCV RNA in serum is based on the isolation of HCV RNA with reverse marketing executive of genomic HCV RNA followed by real-time PCR in the presence of an unrelated RNA internal control. The internal control ensures that RNA is isolated, and that no general significant inhibitors of the RT-PCR process are present. This analysis was performed using an [place] FDA approved test methodology ([employer] RealTime HCV). Test performed at [facility], [address] [place] [address] This case has been personally reviewed and interpreted by the attending (teaching) pathologist. Final Diagnosis performed by Juan Nuñez PHD. Electronically signed 04/16/2017 [facility] ([facility]) Blood specimen (specimen) BLOOD SPECIMEN / Unknown 04/08/2017 12:51 PM CDT 04/08/2017 1:10 PM CDT us Judith Monet PA-C LAB - CHEMISTRY ORDERABLE S Final Result [facility] ([facility]) * (ABNORMAL) COMPREHENSIVE METABOLIC PANEL (04/08/2017 12:51 PM CDT) BUN 14 7 - 26 mg/dL [facility] Creatinine 0.7 0.6 - 1.2 mg/dL [facility] Sodium 141 136 - 145 mmol/L [facility] Potassium 3.9 3.5 - 4.5 mmol/L [facility] Chloride 105 98 - 107 mmol/L [facility] CO2 24 22 - 29 mmol/L [facility] Glucose 86 70 - 115 mg/dL [facility] Calcium 9.5 8.4 - 10.2 mg/dL [facility] Protein Total 7.5 6.0 - 8.3 g/dL [facility] Albumin 3.7 3.4 - 5.0 g/dL [facility] Bilirubin Total 0.6 0.2 - 1.2 mg/dL [facility] Alkaline Phosphatase 78 40 - 150 Units/L [facility] ALT 14 0 - 55 Units/L [facility] AST 14 5 - 34 Units/L [facility] Anion Gap 16 8 - 18 [facility] BUN/Creatinine Ratio 20 7 - 23 [facility] Osmolality Calculated 292 270 - 300 mOsm/kg [facility] Albumin/Globulin Ratio 1.0(L) 1.1 - 2.3 [facility] eGFR >60 >60 mL/min/1.7 3 m2 [facility] Blood specimen (specimen) BLOOD SPECIMEN / Unknown 04/08/2017 12:51 PM CDT 04/08/2017 1:09 PM CDT us Judith Monet PA-C LAB - CHEMISTRY ORDERABLE S Final Result Performing Organization Address City/State/[facility] Co de Phone Number [address] [phone] from Last 3 Months or Most Recently Relevant to Health Maintenance Insurance MEDICARE AETNA MEDICARE AETNA Advance Directives * Full Code (Latest Code Status on File) Date Activated Date Inactivated Comments 10/02/2014 12:35 PM 10/04/2014 4:32 PM Care Teams Stereo Plotter Operator Relationship Specialty Start Date End Date Marija Ospina APRN-WET MACHINE OPERATOR [address] [place] [address] PCP - General 01/20/22
--- OUTSIDE RECORDS SUMMARY | 2025-04-26 01:43 | XMS_ITS | Clinical Summary ---
Author Organization [facility] Address [facility] [place] [address] Care Team Providers Care Website/Blog Editor Name Role Phone Filiberto Salomon MD Primary Care Provider [phone] Allergies Active Allergy Reactions Criticality Noted Date Comments Codeine Nausea And Vomiting High 06/17/2014 Medications apixaban (ELIQUIS) 5 mg tabletIndicatio ns:atrial fibrillation Take 1 tablet (5 mg total) by mouth 2 (two) times a day Active metoprolol tartrate (LOPRESSOR) 50 mg immediate release tablet Take 0.5 tablets (25 mg total) by mouth 2 (two) times a day Dose of medication was decreased from 75 to 25 mg p.o. twice a day because patient was started on amiodarone 30 tablet 06/01/20 22 Active Additional Information Patient taking differently:25 mg oralDaily, Dose of medication was decreased from 75 to 25 mg p.o. once daily because patient was started on amiodarone, Indications: hypertension, Informant: Self, Reported on 06/16/2023 losartan (COZAAR) 100 mg tabletIndicatio ns:hypertension Take 1 tablet (100 mg total) by mouth every morning 07/30/20 22 Active spironolactone (ALDACTONE) 25 mg tabletIndicatio ns:hypertension Take 1 tablet (25 mg total) by mouth every morning 09/29/19 23 Active albuterol HFA (PROVENTIL HFA,VENTOLIN HFA,PROAIR HFA) 90 mcg/actuation inhalerIndicati ons:Acute Asthma Attack Inhale 1 puff as needed for wheezing 10/01/19 23 Active atorvastatin (LIPITOR) 80 mg tablet Take 1 tablet (80 mg total) by mouth daily 30 tablet 3 12/02/19 23 Active Additional Information Patient taking differently:80 mg oralEvery morning, Indications: hyperlipidemia, Informant: Self, Reported on 06/16/2023 azithromycin (ZITHROMAX) 250 mg tablet Take 2 tabs (500 mg) by mouth today, than 1 tab (250 mg) daily for 4 days. 6 tablet 07/23/20 24 Active levothyroxine (SYNTHROID) 88 mcg tablet TAKE 1 TABLET BY MOUTH EVERY DAY 90 tablet 2 08/24/19 25 Active famotidine (PEPCID) 40 mg tablet TAKE 1 TABLET BY MOUTH TWICE A DAY 180 tablet 01/22/20 25 Active magnesium oxide (MAG-OX) 400 mg (241.3 mg elemental magnesium) tablet TAKE 1 TABLET BY MOUTH TWICE A DAY 60 tablet 2 02/05/20 25 Active LORazepam (ATIVAN) 0.5 mg tablet Take 1 tablet (0.5 mg total) by mouth nightly 90 tablet 03/07/20 25 Active Breo Ellipta 100-25 mcg/dose diskus inhalerIndicati ons:Maintenance Therapy for Asthma INHALE 1 PUFF DAILY RINSE MOUTH WITH WATER AFTER USE. DO NOT SWALLOW. 60 each 04/04/20 25 Active dilTIAZem (CARDIZEM) 60 mg tabletIndicatio ns:hypertension Take 1 tablet (60 mg total) by mouth 2 (two) times a day 60 tablet 3 04/24/20 25 Active dilTIAZem (CARDIZEM) 60 mg tabletIndicatio ns:hypertension Take 1 tablet (60 mg total) by mouth 2 (two) times a day 09/27/19 23 2024 Discontinued(R eorder) Breo Ellipta 100-25 mcg/dose diskus inhalerIndicati ons:Maintenance Therapy for Asthma Inhale 1 puff daily Rinse mouth with water after use. Do not swallow. 60 each 03/04/20 25 2024 Discontinued Active Problems Problem Noted Date Diagnosed Date Hyperlipidemia 01/26/2023 S/P ablation of atrial fibrillation 05/31/2022 Atrial fibrillation 05/18/2022 Overview (05/18/2022): Added automatically from request for surgery [id number] Anxiety 11/21/2020 Hypothyroidism 11/21/2020 Essential hypertension 11/21/2020 Encounters Date Type Department Care Team Description 04/24/2025 Orders Only [facility] [address] [place] [id number] July Landin RMA Hypothyroidism, unspecified type (Primary Dx); Essential hypertension; Hyperlipidemia, unspecified hyperlipidemia type from Last 3 Months Immunizations Immunization Administration Dates Next Due Influenza, Quadrivalent, Hig h Dose, Preservative Free, Intrr 06/01/2022 Influenza, Quadrivalent, Rec ombinant, Egg Free, Preservative Free, Intramuscular 05/22/2020,05/20/2020 Pfizer SARS-CoV-2 Monovalent Vaccination (12+ Yrs) PURPLE 10/28/2020,10/07/2020 Pneumococcal Polysaccharide PPV23 06/11/2016 Surgical History Surgery Date Site/Laterality Comments SECTION x3 CHOLECYSTECTOMY TOTAL HIP ARTHROPLASTY Bilateral TUBAL LIGATION ABLATION 05/15/2022 - 06/14/2022 afib ablation OTHER SURGICAL HISTORY 05/15/2023 - 06/14/2023 loop recorder BILATERAL KNEE ARTHROSCOPY Bilateral GASTRIC BYPASS Medical History Medical History Date Comments Anxiety Depression Hypertension Thyroid disease PONV (postoperative nausea and vomiting) not with every procedure Family History Medical History Relation Name Comments Diabetes Father Heart disease Father Heart disease Maternal Grandmother Hypertension Mother Heart disease Paternal Grandmother Relation Name Status Comments Father Maternal Grandmother Mother Paternal Grandmother Social History Tobacco Use Types Packs/Day Years Used Date Smoking Tobacco: Never Passive Smoke Exposure: Never Smokeless Tobacco: Never Tobacco Cessation:Counseling Given: Not Answered AUDIT-C Answer Date Recorded Q1: How often do you have a drink containing alcohol? Never 07/12/2023 Q2: How many drinks containi ng alcohol do you have on a typical day when you are drinking? Patient does not drink Q3: How often do you have si x or more drinks on one occasion? Never 07/12/2023 Personal Safety Answer Date Recorded Have you ever been in or are you currently in a harmful physical or emotional relationship or is someone making you feel afraid or unsafe? Denies 07/12/2023 Comments No Sex and Gender Information Value Date Recorded Sex Assigned at Not on file Legal Sex Female 3:38 AM [employer]CH [employer] Gender Identity Not on file Sexual Orientation Not on file Obstetrics History Last Filed Vital Signs Vital Sign Reading Time Taken Comments Blood Pressure 121/61 05/04/2024 8:35 AM CDT Pulse 57 05/04/2024 8:35 AM CDT Temperature 36.2 C (97.2 F) 07/12/2023 1:32 PM [employer] Respiratory Rate 14 07/12/2023 1:52 PM [employer]CH [employer] Oxygen Saturation 96% 07/12/2023 1:52 PM BROOCH [employer]OVEL[employer] Inhaled Oxygen Concentration - - Weight 97 kg (213 lb 12.8 oz) 05/04/2024 8:35 AM CDT Height 167.6 cm (5' 6) 05/04/2024 8:35 AM CDT Body Mass Index 34.51 05/04/2024 8:35 AM CDT Plan of Treatment Scheduled Procedures Name Priority Associated Diagnoses Date/Ti me COLONOSCOPY Screen for colon cancer COLONOSCOPY Encounter for screening colonoscopy COLONOSCOPY Encounter for screening colonoscopy Health Maintenance Due Date Last Done Comments Breast Cancer Screening-Mammogram 1955 Depression Screening 1955 Hepatitis C Screening 1955 Osteoporosis Screening-Bone Density Scan 1955 DTaP/Tdap/Td Vaccine (1 - Tdap) 1966 Hepatitis B Screening 1973 Zoster Vaccine (1 of 2) 2005 Pneumococcal vaccine 65+ (2 of 2 - PCV) 06/11/2017 06/11/2016 Well Visit 65+ 11/21/2021 11/21/2020 Fall Risk Assessment 07/12/2024 07/12/2023 Covid-19 Vaccine (4 - 2024-2 6 season) 2025 06/12/2021, 10/28/2020, 10/07/2020 Influenza Vaccine (#1) 2025 , 05/22/2020, 05/20/2020 Colon Cancer Screening-Colonoscopy 07/12/20332022 Colon Cancer Screening-CT Colonography Discontinued 07/12/2023 Colon Cancer Screening-DNA Stool Discontinued 07/12/20 Colon Cancer Screening-FIT Discontinued 07/12/2023 Colon Cancer Screening-Sigmoidoscopy Discontinued 06/16 Medical Devices Implanted Type Area Resistance Welding Machine Operator Device Identifier Shelf Expiration Date Model / Serial / Lot Implantable Loop Recorder Implantable Loop Recorder N/A: Heart Procedures Procedure Name Priority Date/Time Associated Diagnosis Comments COLONOSCOPY 07/12/2023 12:50 PM [employer] from Last 3 Months or Most Recently Relevant to Health Maintenance Results * COLONOSCOPY (07/12/2023 12:50 PM [employer]) Anatomical Region Laterality Modality Other Narrative Procedure Note Claudia Chisholm MD - 07/12/2023 12:50 PM [facility] Patient Name: Zara Love Procedure Date: 07/12/2023 12:50PM Date of : 1955 Admit Type: Outpatient Age: 68 Gender: Female Attending MD: Claudia Chisholm M.D. Room: [facility] END[facility]COPY ROOM 9 Note Status: Finalized Procedure: Colonoscopy Indications: Screening for colorectal malignant neoplasm Second degree relative, grandmother with CRC Sister with h/o Polyps Referring MD: Filiberto Salomon M.D. Providers: Claudia Chisholm M.D. Medicines: Monitored Anesthesia Care Complications: No immediate complications. Estimated Blood Loss: Estimated blood loss: none. Estimated blood loss:none. Procedure: Pre-Anesthesia Assessment: - Prior to the procedure, a History and Physicalwas performed, and patient medications, allergies and sensitivities were reviewed. The patient'stolerance of previous anesthesia was reviewed. - The risks and benefits of the procedure and the sedation options and risks were discussed with the patient. All questions were answered and informed consent was obtained. - Immediately prior to administration ofmedications, the patient was re-assessed for adequacy to receive sedatives. - Sedation was administered by an anesthesia professional. Deep sedation was attained. The benefits, risks and alternatives of theprocedure and sedation were discussed and informed consentwas obtained. All questions were answered. Please referto the signed informed consent document in the medical record. The scope was passed under direct vision.The [id number] endoscope was introduced through the anus and advanced to the ileum/ cecum,identified by appendiceal orifice and ileocecal valve. The colonoscopy was performed without difficulty. The patient tolerated the procedure well. The qualityof the bowel preparation was adequate. The quality ofthe bowel preparation was evaluated using the BBPS(Myra Bowel Preparation Scale) with scores of: RightColon = 2 (minor amount of residual staining, smallfragments of stool and/or opaque liquid, but mucosa seenwell), Transverse Colon = 2 (minor amount of residual staining, small fragments of stool and/or opaque liquid, but mucosa seen well) and Left Colon = 2 (minor amount of residual staining, small fragmentsof stool and/or opaque liquid, but mucosa seen well).The total BBPS score equals 6. The quality of the bowel preparation was fair. The bowel preparation usedwas GoLYTELY via split dose instruction. Right side was examined twice on withdrawal. Extreme diligence was made to ensure examination behind the fold usinggood withdraw technique with adequate insufflation and washing of the debris. Bowel prep was administered using a split dose. Findings: The perianal and digital rectal examinations were normal. Normal terminal ileum A 5 mm polyp was found in the rectum. The polyp was sessile. Thepolyp was removed with a cold snare. Resection and retrieval were complete. The pathology specimen was placed into Bottle A. Multiple medium-mouthed diverticula were found in the sigmoid colonand descending colon. Non-bleeding internal hemorrhoids were found during retroflexion. The hemorrhoids were medium-sized. No additional abnormalities were found on retroflexion. Impression: - Preparation of the colon was fair. - One 5 mm polyp in the rectum, removed with a cold snare. Resected and retrieved. - Diverticulosis in the sigmoid colon and in the descending colon. - Non-bleeding internal hemorrhoids. Recommendation: - -Observe pt in recovery. - Discharge patient to home when stable. - Patient has a contact number available for emergencies. The signs and symptoms of potential delayed complications were discussed with thepatient. Return to normal activities tomorrow. Written discharge instructions were provided to thepatient. - Resume previous diet. - Continue present medications. - Await pathology results. - The findings and recommendations were discussedwith the patient. - In the unusual situation that you developabdominal pain, bleeding or other significant problems inthe days following this procedure please call my office [phone]). After hours and eveningsplease call [phone] and speak to the GI fellow oncall fellow. Please tell the fellow that Dr. Chisholm did your procedure and that you were instructed to have the fellow call me or the physician covering for meto discuss the management of your condition. If youhave an urgent problem, please go to the nearestemergency room and have the ER doctor call my office duringthe day or the GI fellow after hours and weekends to arrange admission or transfer to our facility.Please bring this report with you if you go to theemergency room. - Repeat colonoscopy in 5 years for surveillance(fair prep, and family h/o CRC). Attending Participation: I personally performed the entire procedure. Electronically signed by Claudia Chisholm MD Claudia Chisholm M.D. 07/12/2023 1:27:30 PM . Number of Addenda: 0 Note Initiated On: 07/12/2023 12:50 PM Recognized by the [employer] for promoting quality in endoscopy us Claudia Chisholm MD ENDOSCOPY PROCEDURES F inal Result from Last 3 Months or Most Recently Relevant to Health Maintenance Insurance MEDICARE AET MEDICARE AETNA MEDICARE AETNA SENIOR SUPPLEMENT MEDICARE Advance Directives For more information, please contact: [phone] * Full Code (Latest Code Status on File) Date Activated Date Inactivated Comments 07/12/2023 12:08 PM 07/12/2023 6:12 PM Care Teams Website/Blog Editor Relationship Specialty Start Date End Date Filiberto Salomon MD PCP - General Internal Medicine 05/07/20
[2025-04-26] MEDS: MORPHINE SULFATE (*CRX) 4 MG/ML INJ IV PUSH ×2 (01:51→03:28)
[2025-04-26] MEDS: ONDANSETRON INJ 4 MG/2 ML VIAL IV PUSH (01:51)
[2025-04-26 01:52] LABS: Hematocrit 44.6 % (37.0-47.0); Hemoglobin 14.2 g/dL (12.0-15.0); Immature Granulocyte Percent A 0.3 % (0-0.5); Lymphocytes Absolute Auto 1.82 K/mm3 (0.9-3.2); Mean Corpuscular HGB Conc 31.8 g/dl (32-36); Mean Corpuscular Hemoglobin 28.6 pg (26-34); Mean Corpuscular Volume 89.7 fl (80-100); Nucleated Red Blood Cells Absolute Auto 0.000 K/mm3 (0.0-0.012); Nucleated Red Blood Cells Perc 0.0 % (0.0-0.2); Platelet Count Result 292 k/mm3 (150-375); Red Blood Count 4.97 M/mm3 (4.2-5.4); White Blood Count 12.1 K/mm3 (4.5-10.0)
[2025-04-26 01:56] VITALS: PULSE 63; RESP 15; TEMP 36.6; O2SAT 100
[2025-04-26 01:56] LABS: Add Urine Microscopic? YES; Appearance Urine Clear (Clear); Glucose Urine UA Negative (Negative); Leukocyte Esterase Ur Negative LEU/UL (Negative); Nitrate Urine Negative (Negative); Non Pathogenic Casts 0-2; Specific Grav Ur 1.011 (1.001-1.035)
[2025-04-26 02:15] VITALS: BP 171/69; PULSE 56; RESP 14; O2SAT 96
[2025-04-26 03:24] LABS: Alanine Aminotransferase 25 U/L (6-35); Albumin Level 4.1 g/dL (3.5-5.1); Alkaline Phosphatase 89 U/L (38-126); Anion Gap 8 mmol/L (4-12); Aspartate Amino Transferase 28 U/L (14-36); Bilirubin,Total 0.5 mg/dL (0.2-1.3); Blood Urea Nitrogen 18 mg/dL (7-17); Calcium 9.2 mg/dL (8.4-10.2); Carbon Dioxide 26 mmol/L (22-30); Chloride 104 mmol/L (98-107); Estimated CRCL calculation 65 ml/min; Estimated Glomerular Filt Rate > 60; Glucose 112 mg/dL (65-110); Lipase 128 U/L (23-300); Potassium 4.2 mmol/L (3.4-5.0); Sodium 138 mmol/L (137-145); Total Protein 7.6 g/dL (6.3-8.2)
[2025-04-26 04:20] VITALS: BP 146/78; PULSE 55; RESP 12; O2SAT 95
[2025-04-26 06:25] VITALS: BP 133/66; PULSE 72; RESP 15; O2SAT 96
== END 2025-04-26 06:53 | disposition home or self-care (01) ==
PROVIDERS: Emergency Provider Physician Assistant
DX: K52.9 Noninfective gastroenteritis and colitis, unspecified (principal); E03.9 Hypothyroidism, unspecified; I10 Essential (primary) hypertension
CPT/HCPCS: 36415; 74177; 80053; 81001; 83690; 85025; 96374; 96375; 96376; 99284; J2270; J2405; Q9967

== ENCOUNTER 2025-07-18 14:59 | Outpatient (CLI) | payer MEDICARE, SELFPAY ==
--- NOTE | ~2025-07-18 | MM_ITS ---
EXAMINATION: MM screening [facility] w juan diego HISTORY: Screening. TECHNIQUE: Craniocaudal and mediolateral oblique 3-D tomosynthesis images were obtained and synthetic 2-D images were generated. CAD analysis was submitted and interpreted. COMPARISON: 2023 and 2018 BREAST PARENCHYMAL COMPOSITION: Not Dense: The breasts are almost entirely fatty FINDINGS: There is a cardiac loop monitor in the posterior medial left breast. No suspicious masses are seen. There are no suspicious calcifications. No unexplained architectural distortion is seen. There are no skin or nipple abnormalities identified. There is no adenopathy seen on the images submitted. IMPRESSION: No mammographic evidence to suggest malignancy is seen. The patient may return to screening mammography as per ACR guidelines. BI-RADS 1 - Negative. Reviewed, dictated and finalized at location C. [facility] DERMATOLOGIST
== END 2025-07-18 15:00 | disposition home or self-care (01) ==
PROVIDERS: PCP Internal Medicine; Visit Provider Internal Medicine
DX: Z12.31 Encounter for screening mammogram for malignant neoplasm of breast (principal)
CPT/HCPCS: 77063; 77067